=== PATIENT | male | born 1945 ===

== ENCOUNTER 2017-01-31 15:40 | Emergency (ER) | payer MEDICARE ==
[2017-01-31 15:40] VITALS: BMI 308.7
[2017-01-31 16:21] VITALS: RESP 18; TEMP 98
--- NOTE | 2017-01-31 16:27 | ED PDOC ---
Arrival/HPI - General Chief Complaint: High Blood Pressure Time Seen by Provider: 01/31/17 16:04 Historian: Patient, Family - Critical Care Narrative Critical Care (Text): 01/31/17 16:38 71 y/o male with hx DM, CKD, HTN, diabetic neuropathy. Patient took his BP at home multiple times with an automatic BP device. He reports measurements as high as 198 systolic. Patient denies any symptoms including headache, dizziness , vision changes, chest pain and shortness of breath. Patient takes Bystolic 5mg daily for HTN. He took 1 5mg tablet prior to arrival. Patient is currently stable with BP 158/97. - History of Present Illness Time/Duration: Prior to Arrival Symptom Course: Improving Past Medical History - Provider Review Nursing Documentation Reviewed: Yes - Infectious Disease Hx of Infectious Diseases: None - Tetanus Immunization Tetanus Immunization: Unknown - Cardiac Hx Cardiac Disorders: Yes Hx Hypertension: Yes - Pulmonary Hx Respiratory Disorders: No - Neurological Hx Neurological Disorder: No Hx Paralysis: No - HEENT Hx HEENT Disorder: No Hx Blind: No - Renal Hx Renal Disorder: Yes Hx Renal Failure: Yes - Endocrine/Metabolic Hx Endocrine Disorders: Yes Hx Diabetes Mellitus Type 2: Yes Hx Hypothyroidism: Yes - Hematological/Oncological Hx Blood Disorders: No Hx Blood Transfusions: No Hx Blood Transfusion Reaction: No - Integumentary Hx Dermatological Disorder: No - Musculoskeletal/Rheumatological Hx Musculoskeletal Disorders: No - Gastrointestinal Hx Gastrointestinal Disorders: Yes Hx Diverticulitis: Yes (and diverticulosis) Hx Gastroesophageal Reflux: Yes - Genitourinary/Gynecological Hx Genitourinary Disorders: No - Psychiatric Hx Psychophysiologic Disorder: No Hx Emotional Abuse: No Hx Physical Abuse: No Hx Substance Use: No - Surgical History Hx Inguinal Hernia Repair: Yes - Anesthesia Hx Anesthesia: No Hx Anesthesia Reactions: No Hx Malignant Hyperthermia: No - Suicidal Assessment Feels Threatened In Home Enviroment: No Family/Social History - Physician Review Nursing Documentation Reviewed: Yes Family/Social History: Unknown Family HX Smoking Status: Former Smoker Hx Alcohol Use: No Hx Substance Use: No Hx Substance Use Treatment: No Allergies/Home Meds Allergies/Adverse Reactions: Allergies No Known Allergies Allergy (Verified 12/23/16 09:51) Home Medications: Home Meds Medication Instructions Recorded Confirmed Esomeprazole Magnesium [Nexium] 40 mg PO DAILY 11/14/14 12/23/16 Levothyroxine Sodium 88 mcg PO DAILY 11/14/14 12/23/16 Allopurinol [Zyloprim] 50 mg PO DAILY 11/23/16 12/23/16 Cholecalciferol (Vitamin D3) 2,000 unit PO DAILY 11/23/16 12/23/16 [Vitamin D3] Sennosides [Senna] 4 tab PO DAILY 11/23/16 12/23/16 Oxycodone HCl/Acetaminophen 1 tab PO PRN PRN 12/23/16 12/23/16 [Percocet 10-325 mg Tablet] Paracalcitol 1 mcg PO DAILY 12/23/16 12/23/16 Nebivolol [Bystolic] 5 mg PO DAILY 01/31/17 01/31/17 Review of Systems - Physician Review All systems were reviewed & negative as marked: Yes - Review of Systems Constitutional: Normal. absent: Fatigue, Fevers Eyes: Normal ENT: Normal Respiratory: Normal. absent: SOB, Sputum Cardiovascular: Normal. absent: Chest Pain, Palpitations Gastrointestinal: Normal Psychiatric: absent: Anxiety, Depression Physical Exam Vital Signs Reviewed: Yes Vital Signs Temp Pulse Resp BP Pulse Ox 01/31/17 16:14 98.0 F 70 18 156/97 H 99 01/31/17 15:57 97.9 F 62 18 178/108 H 98 Temperature: Afebrile Blood Pressure: Hypertensive Pulse: Regular Respiratory Rate: Normal Appearance: Positive for: Well-Appearing Pain Distress: None Mental Status: Positive for: Alert and Oriented X 3 Finger Stick Blood Glucose: 193 - Systems Exam Head: Present: Atraumatic, Normocephalic Pupils: Present: PERRL Extroacular Muscles: Present: EOMI Conjunctiva: Present: Normal Mouth: Present: Moist Mucous Membranes Neck: Present: Normal Range of Motion Respiratory/Chest: Present: Clear to Auscultation. No: Respiratory Distress Cardiovascular: Present: Regular Rate and Rhythm, Normal S1, S2 Abdomen: Present: Normal Bowel Sounds. No: Tenderness, Distention Upper Extremity: Present: Normal Inspection. No: Cyanosis, Edema Lower Extremity: Present: Normal Inspection, CALF TENDERNESS, NORMAL PULSES. No : Edema Neurological: Present: GCS=15, CN II-XII Intact, Speech Normal Skin: Present: Warm, Dry. No: Rashes Psychiatric: Present: Alert, Oriented x 3, Normal Insight, Normal Concentration Medical Decision Making ED Course and Treatment: 01/31/17 16:35 71 y/o male with hx DM, CKD, diabetic neuropathy presenting from home with reported hypertension. BP is currently 159/97. Patient took Bystolic 5mg prior to arrival. He is asymptomatic. Will continue to monitor. 01/31/17 17:13 Patient remains asymptomatic. BP now 165/100. Patient advised to call his primary, Dr. Garcia and make an appointment as soon as possible. He is instructed to take his BP at home and create a log of his results. Disposition/Present on Arrival - Present on Arrival Any Indicators Present on Arrival: Yes History of DVT/PE: No History of Uncontrolled Diabetes: No Urinary Catheter: No History of Decub. Ulcer: No History Surgical Site Infection Following: None - Disposition Have Diagnosis and Disposition been Completed?: Yes Diagnosis: Hypertension Disposition: HOME/ ROUTINE Disposition Time: 17:17 Patient Plan: Discharge Patient Problems: Current Active Problems Problem Status Diagnosed Hypertension Acute Condition: GOOD Discharge Instructions (ExitCare): Hypertension (ED) Additional Instructions: Take your blood pressure at home and keep a log of your results. If blood pressure continues to be high. Of if you get readings greater than 200/ 100 call your primary physician or come back to the ED. See Dr. Garcia in his office as soon as possible. Referrals: Woodrow Garcia MD [Primary Care Provider] - Follow up with primary
[2017-01-31 17:30] VITALS: BP 172/102; PULSE 58; O2SAT 100
== END 2017-01-31 17:30 | disposition home or self-care (01) ==
LOC: ED 15:40
DX: I12.9 Hypertensive chronic kidney disease with stage 1 through stage 4 chronic kidney disease, or unspecified chronic kidney disease (principal); N18.9 Chronic kidney disease, unspecified; E11.9 Type 2 diabetes mellitus without complications; E03.9 Hypothyroidism, unspecified; Z87.891 Personal history of nicotine dependence

== ENCOUNTER 2017-06-13 09:46 | Inpatient (IN) | payer MEDICARE ==
--- NOTE | 2017-06-13 11:02 | ED PDOC ---
Arrival/HPI - General Chief Complaint: Lower Extremity Problem/Injury Time Seen by Provider: 06/13/17 10:48 Historian: Patient - History of Present Illness Narrative History of Present Illness (Text): 06/13/17 10:48 A 72 year old male, whose past medical history includes diabetes, hypertension, presents to the emergency department complaining of a wound on his left lower extremity for 1 week. Patient reports he was treated at an urgent care and prescribed ointment and Augmentin. Patient has been compliant with medications but has seen no improvement. Patient notes discharge but denies any fever, chills, nausea, vomiting or any other complaints. PMD: Dr. Garcia Time/Duration: 1 week Symptom Course: Worsening Quality: Other Context: Home Past Medical History - Provider Review Nursing Documentation Reviewed: Yes - Infectious Disease Hx of Infectious Diseases: None - Tetanus Immunization Tetanus Immunization: Unknown - Cardiac Hx Cardiac Disorders: Yes Hx Hypertension: Yes - Pulmonary Hx Respiratory Disorders: Yes Hx Chronic Obstructive Pulmonary Disease (COPD): Yes - Neurological Hx Neurological Disorder: Yes Hx Paralysis: No Other/Comment: neuropathy - HEENT Hx HEENT Disorder: No Hx Blind: No - Renal Hx Renal Disorder: Yes Hx Renal Failure: Yes - Endocrine/Metabolic Hx Endocrine Disorders: Yes Hx Diabetes Mellitus Type 2: Yes Hx Hypothyroidism: Yes - Hematological/Oncological Hx Blood Disorders: No Hx Blood Transfusions: No Hx Blood Transfusion Reaction: No - Integumentary Hx Dermatological Disorder: No - Musculoskeletal/Rheumatological Hx Musculoskeletal Disorders: No - Gastrointestinal Hx Gastrointestinal Disorders: Yes Hx Diverticulitis: Yes (and diverticulosis) Hx Gastroesophageal Reflux: Yes - Genitourinary/Gynecological Hx Genitourinary Disorders: No - Psychiatric Hx Psychophysiologic Disorder: No Hx Emotional Abuse: No Hx Physical Abuse: No Hx Substance Use: No - Surgical History Hx Inguinal Hernia Repair: Yes - Anesthesia Hx Anesthesia: Yes Hx Anesthesia Reactions: No Hx Malignant Hyperthermia: No - Suicidal Assessment Feels Threatened In Home Enviroment: No Family/Social History - Physician Review Nursing Documentation Reviewed: Yes Family/Social History: No Known Family HX Smoking Status: Former Smoker Hx Alcohol Use: No Hx Substance Use: No Hx Substance Use Treatment: No Allergies/Home Meds Allergies/Adverse Reactions: Allergies No Known Allergies Allergy (Verified 06/13/17 09:51) Home Medications: Home Meds Medication Instructions Recorded Confirmed ALPRAZolam [Xanax] 0.25 mg PO DAILY 06/13/17 06/13/17 Allopurinol [Zyloprim] 100 mg PO DAILY 06/13/17 06/13/17 Amoxicillin/Clavulanate [Augmentin 1 tab PO DAILY 06/13/17 06/13/17 500 MG-125 MG Tab] Aspirin [Adult Low Dose Aspirin EC] 81 mg PO DAILY 06/13/17 06/13/17 Cholecalciferol [Vitamin D 1000 IU] 1 tab PO DAILY 06/13/17 06/13/17 Doxazosin [Cardura] 2 mg PO DAILY 06/13/17 06/13/17 Esomeprazole Magnesium [Nexium] 40 mg PO DAILY 06/13/17 06/13/17 Levothyroxine [Synthroid] 88 mcg PO DAILY 06/13/17 06/13/17 [id number] Ethyl Esters [OMEGA 3] 1 tab PO DAILY 06/13/17 06/13/17 amLODIPine [Norvasc] 10 g PO DAILY 06/13/17 06/13/17 oxyCODONE [oxyCODONE Immediate 10 mg PO DAILY 06/13/17 06/13/17 Release Tab] Review of Systems - Physician Review All systems were reviewed & negative as marked: Yes - Review of Systems Constitutional: absent: Fevers, Night Sweats Gastrointestinal: absent: Nausea, Vomiting Skin: Other (Left lower extremity wound, pt notes discharge) Physical Exam Vital Signs Reviewed: Yes Vital Signs Temp Pulse Resp BP Pulse Ox 06/13/17 13:53 69 17 152/95 H 96 06/13/17 12:06 58 L 17 143/76 97 06/13/17 10:52 98.0 F 60 18 134/79 98 Temperature: Afebrile Blood Pressure: Normal Pulse: Regular Respiratory Rate: Normal Appearance: Positive for: Well-Appearing, Non-Toxic, Comfortable Pain Distress: None Mental Status: Positive for: Alert and Oriented X 3 - Systems Exam Head: Present: Atraumatic, Normocephalic Pupils: Present: PERRL Extroacular Muscles: Present: EOMI Conjunctiva: Present: Normal Mouth: Present: Moist Mucous Membranes Neck: Present: Normal Range of Motion Respiratory/Chest: Present: Clear to Auscultation, Good Air Exchange. No: Respiratory Distress, Accessory Muscle Use Cardiovascular: Present: Regular Rate and Rhythm, Normal S1, S2. No: Murmurs Abdomen: Present: Normal Bowel Sounds. No: Tenderness, Distention, Peritoneal Signs Back: Present: Normal Inspection Upper Extremity: Present: Normal Inspection. No: Cyanosis, Edema Lower Extremity: Present: NORMAL PULSES, Normal ROM, Neurovascularly Intact, Other (Two 1 cm circular wounds on left lower lateral friend with surrounding erythema, swelling and warmth. Drainage noted in both wounds.). No: Edema, CALF TENDERNESS Neurological: Present: GCS=15, Speech Normal Skin: Present: Warm, Dry, Normal Color. No: Rashes Psychiatric: Present: Alert, Oriented x 3, Normal Insight, Normal Concentration Medical Decision Making ED Course and Treatment: Report Date : 06/13/2017 12:36:23 PROCEDURE: Radiographs of the left tibia and fibula. Dictator : Mango Hylton MD IMPRESSION: No acute findings - Lab Interpretations Lab Results: 06/13/17 11:03 06/13/17 11:03 Lab Results 06/13/17 11:03: Sodium 140, Potassium 4.0, Chloride 104, Carbon Dioxide 26, Anion Gap 14, BUN 46 H, Creatinine 2.8 H, Est GFR ( Amer) 27, Est GFR ( Non-Af Amer) 22, Random Glucose 93, Calcium 9.6, Total Bilirubin 0.7, AST 30, ALT 26, Alkaline Phosphatase 69, Total Protein 7.1, Albumin 4.0, Globulin 3.1, Albumin/Globulin Ratio 1.3 06/13/17 11:03: WBC 7.1, RBC 3.30 L, Hgb 10.7 L, Hct 30.7 L, MCV 93.0, MCH 32.4 , MCHC 34.9, RDW 13.2, Plt Count 193, MPV 10.2, Gran % 67.3, Lymph % (Auto) 19.6 L, [place] % (Auto) 10.5 H, Eos % (Auto) 2.2, Baso % (Auto) 0.4, Gran # 4.80, Lymph # 1.4, [place] # 0.8 H, Eos # 0.2, Baso # 0.03 I have reviewed the lab results: Yes - RAD Interpretation Radiology Orders: 06/13/17 11:04 TIBIA FIBULA LEFT [RAD] Stat - Medication Orders Current Medication Orders: Allopurinol (Zyloprim) 100 mg PO DAILY KANE Alprazolam (Xanax) 0.25 mg PO DAILY KANE PRN Reason: Protocol Stop: 06/21/17 10:01 Amlodipine Besylate (Norvasc) 10 mg PO DAILY [facility] Aspirin (Ecotrin) 81 mg PO DAILY [facility] Cholecalciferol (Vitamin D) 1,000 iu PO DAILY [facility]ANE Doxazosin Mesylate (Cardura) 2 mg PO DAILY [facility] Heparin Sodium (Porcine) (Heparin) 5,000 units SC Q12 KANE PRN Reason: Protocol Ceftaroline Fosamil 300 mg/ (Sodium Chloride) 50 mls @ 50 mls/hr IVPB Q12H KANE PRN Reason: Protocol Stop: 06/14/17 10:59 Levothyroxine Sodium (Synthroid) 88 mcg PO 0600 KANE Qtmyo-3-Exzt Ethyl Esters (Lovaza) 1 gm PO DAILY [facility]NE Pantoprazole Sodium (Protonix Inj) 40 mg IVP DAILY KANE Discontinued Medications Doxazosin Mesylate (Cardura) 2 mg PO DAILY KANE Ceftaroline Fosamil 600 mg/ (Sodium Chloride) 100 mls @ 100 mls/hr IVPB Q12 KANE PRN Reason: Protocol Stop: 06/13/17 22:59 Last Admin: 06/13/17 13:20 Dose: 100 mls/hr - Scribe Statement The provider has reviewed the documentation as recorded by the Hawa Mendez Provider Scribe Attestation: All medical record entries made by the Scribe were at my direction and personally dictated by me. I have reviewed the chart and agree that the record accurately reflects my personal performance of the history, physical exam, medical decision making, and the department course for this patient. I have also personally directed, reviewed, and agree with the discharge instructions and disposition. Disposition/Present on Arrival - Present on Arrival Any Indicators Present on Arrival: No History of DVT/PE: No History of Uncontrolled Diabetes: No Urinary Catheter: No History of Decub. Ulcer: No History Surgical Site Infection Following: None - Disposition Have Diagnosis and Disposition been Completed?: Yes Diagnosis: Cellulitis of leg, Wound infection Disposition: HOSPITALIZED Disposition Time: 13:23 Condition: STABLE
[2017-06-13 11:10] LABS: BASO # 0.03 K/mm3 (0.0-2.0); BASO % 0.4 % (0.0-3.0); EOS # 0.2 (0.0-0.7); EOS % 2.2 % (1.5-5.0); GRAN % 67.3 % (50.0-68.0); HEMOGLOBIN 10.7 g/dL (14.0-18.0); LYMPH # 1.4 (1.2-3.4); LYMPH % 19.6 % (22.0-35.0); MEAN CORPUSCULAR HEMOGLOBIN 32.4 pg (25.0-35.0); MEAN CORPUSCULAR HGB CONC 34.9 g/dl (31.0-37.0); MEAN PLATELET VOLUME 10.2 fl (7.0-11.0); MONO # 0.8 (0.1-0.6); MONO % 10.5 % (1.0-6.0); PLATELET COUNT 193 10^3/uL (120.0-450.0); RED CELL DISTRIBUTION WIDTH 13.2 % (11.5-14.5); WHITE BLOOD COUNT 7.1 10^3/ul (4.5-11.0)
[2017-06-13 11:22] LABS: ALB/GLOB RATIO 1.3 (1.1-1.8); CALCIUM 9.6 mg/dL (8.4-10.5)
--- NOTE | 2017-06-13 12:38 | RAD ---
PROCEDURE: Radiographs of the left tibia and fibula. HISTORY: wound eval for osteo/gas COMPARISON: None available. TECHNIQUE: Frontal and lateral views obtained. FINDINGS: BONES: No fracture or destructive lesion. JOINT SPACES: Unremarkable. OTHER FINDINGS: There is a large soft tissue calcification posterior to the tibia measuring 11 cm in length and 0.8 cm in thickness. This is most likely due to previous injury or infection. IMPRESSION: No acute findings
--- NOTE | 2017-06-13 17:40 | CP.PCM.HP ---
<Eddie Barros - Last Filed: 06/13/17 17:29> History of Present Illness - History of Present Illness History of Present Illness: Patient is a 72 year old male with past medical history of diabetes, hypertenion , CKD, neuropathy, anxiety, diverticulosis and gout who presents to the ED complaining of left lower extremity redness, swelling and pain. The patient reported that he first noticed his leg becoming red one week prior to admission. He indicates he went walking in a park and possible had bug bites or breaking of the skin after walking through brush. The patient reports after noticing his leg beginning to turn red and swell he went to an urgent care for evaluation. While there he was given ciprofloxacin 250mg for possible cellulitis. The patient reports taking 5 days of the medication. The patient continued to feel pain and worsening redness and swelling so he went back to the urgent care and was given another prescription for antibiotics. The patient reports taking Amoxicillin for the past 2 days. After his antibiotic course he contacted his primary care physicain Dr. Petty and was instructed to go to the emergency department for evaluation. Lower leg xray in the ED showing large soft tissue calcification posterior to the tibia measuring 11cm in length and 0.8cm in thickness most likely due to previous injury or infection. The patient was noted to not have an elevation in his WBC or temperature. Patient was started on Ceftaroline in ED for cellulitis. Patient denies chest pain, shob, abdominal pain, change in his bowel, n/v/f/c. PMH: as above PSH: Umbilical hernia repair, Liposuction FMH: Non-contributory SocHx: Tob:- ETOH:- Drug:-, Lives with All: NKDA Meds: See MAR PMD: Dr. Petty Present on Admission - Present on Admission Any Indicators Present on Admission: No History of DVT/PE: No History of Uncontrolled Diabetes: No Urinary Catheter: No Decubitus Ulcer Present: No Review of Systems - Constitutional Constitutional: As Per HPI - EENT Eyes: As Per HPI Nose/Mouth/Throat: As Per HPI - Cardiovascular Cardiovascular: As Per HPI - Respiratory Respiratory: As Per HPI - Gastrointestinal Gastrointestinal: As Per HPI - Genitourinary Genitourinary: As Per HPI - Reproductive: Male Reproductive:Male: As Per HPI - Musculoskeletal Musculoskeletal: As Per HPI - Integumentary Integumentary: As Per HPI - Neurological Neurological: As Per HPI - Psychiatric Psychiatric: As Per HPI - Endocrine Endocrine: As Per HPI Past Patient History - Infectious Disease Hx of Infectious Diseases: None - Tetanus Immunizations Tetanus Immunization: Unknown - Past Social History Smoking Status: Former Smoker Alcohol: None Drugs: Denies - CARDIAC Hx Cardiac Disorders: Yes Hx Hypertension: Yes - PULMONARY Hx Respiratory Disorders: Yes Hx Chronic Obstructive Pulmonary Disease (COPD): Yes - NEUROLOGICAL Hx Neurological Disorder: Yes Hx Paralysis: No Other/Comment: neuropathy - HEENT Hx HEENT Problems: No Hx Blind: No - RENAL Hx Chronic Kidney Disease: Yes Hx Renal Failure: Yes - ENDOCRINE/METABOLIC Hx Endocrine Disorders: Yes Hx Diabetes Mellitus Type 2: Yes Hx Hypothyroidism: Yes - HEMATOLOGICAL/ONCOLOGICAL Hx Blood Disorders: No Hx Blood Transfusions: No Hx Blood Transfusion Reaction: No - INTEGUMENTARY Hx Dermatological Problems: No - MUSCULOSKELETAL/RHEUMATOLOGICAL Hx Musculoskeletal Disorders: No - GASTROINTESTINAL Hx Gastrointestinal Disorders: Yes Hx Diverticulitis: Yes (and diverticulosis) Hx Gastroesophageal Reflux: Yes - GENITOURINARY/GYNECOLOGICAL Hx Genitourinary Disorders: No - PSYCHIATRIC Hx Psychophysiologic Disorder: No Hx Emotional Abuse: No Hx Physical Abuse: No Hx Substance Use: No - SURGICAL HISTORY Hx Surgeries: Yes (LASER SX TO PROSTATE, LIPOSUCTION,UMBILICAL HERNIA REPAIR,) - ANESTHESIA Hx Anesthesia: Yes Hx Anesthesia Reactions: No Hx Malignant Hyperthermia: No Meds Allergies/Adverse Reactions: Allergies Allergy/AdvReac Type Severity Reaction Status Date / Time No Known Allergies Allergy Verified 06/13/17 09:51 Physical Exam - Head Exam Head Exam: ATRAUMATIC, NORMAL INSPECTION, NORMOCEPHALIC - Eye Exam Eye Exam: EOMI, PERRL - ENT Exam ENT Exam: Mucous Membranes Moist, Normal Exam - Neck Exam Neck exam: Positive for: Normal Inspection - Respiratory Exam Respiratory Exam: Clear to Auscultation Bilateral, NORMAL BREATHING PATTERN - Cardiovascular Exam Cardiovascular Exam: REGULAR RHYTHM, +S1, +S2 - GI/Abdominal Exam GI & Abdominal Exam: Normal Bowel Sounds, Soft - Rectal Exam Rectal Exam: Deferred - Extremities Exam Extremities exam: Positive for: full ROM, pedal pulses present Additional comments: lower left extremity mid tibia to malleoli of ankle there is echymosis, warmth, and two open sores with yellow purulent drainage - Back Exam Back exam: NORMAL INSPECTION - Neurological Exam Neurological exam: Alert, CN II-XII Intact, Normal Gait, Oriented x3, Reflexes Normal - Psychiatric Exam Psychiatric exam: Normal Affect, Normal Mood - Skin Skin Exam: Dry, Warm Results - Vital Signs Recent Vital Signs: Last Vital Signs Temp 98.0 F 06/13/17 10:52 Pulse 69 06/13/17 13:53 Resp 17 06/13/17 13:53 BP 152/95 H 06/13/17 13:53 Pulse Ox 96 06/13/17 13:53 - Labs Result Diagrams: 06/13/17 11:03 06/13/17 11:03 Labs: Laboratory Results - last 24 hr 06/13/17 06/13/17 06/13/17 14:01 14:01 16:28 POC Glucose (mg/dL) 128 H Hemoglobin A1c 6.0 Procalcitonin < 0.05 L Assessment & Plan - Assessment and Plan (Free Text) Assessment: This is a 72 year old male with PMH of HTN, DM, CKD, Neuropathy, Anxiety, hematuria, Diverticulosis and gout who came to ED for worsening left lower extremity suspected cellulitis Plan: 1. Left lower extremity Cellulitis - Afebrile, leukocytosis absent - Xray with no acute findings but signs of previous injury - Wound culture, Blood culture - Consult ID - Consult Podiatry - Ceftaroline renally dosed at 300mg IVPB BID 2. Chronic kidney injury - Cr 2.8, records indicate baseline closer to 3 - Urinalysis - Continue to monitor - Renally dose medications 3. HTN, CAD - Continue norvasc, cardura, ASA 4. Hx of DM - Currently not on medication for DM - HgA1C 6.0 - CCD 5. Hx of hypothyroid - Continue synthroid 6. Hx of Constipation - colace and miralax prn 7. Hx of Anxiety - Xanax 0.25mg prn 8. Hx of Gout - Allopurinol DVT ppx: Heparin 5000 units GI ppx: Protonix - Date & Time Date: 06/13/17 Time: 17:43 <Dorian Link - Last Filed: 06/17/17 15:41> Results - Vital Signs Recent Vital Signs: Last Vital Signs Temp 98.1 F 06/15/17 07:56 Pulse 60 06/15/17 07:56 Resp 18 06/15/17 07:56 BP 133/84 06/15/17 09:33 Pulse Ox 95 06/15/17 07:56 - Labs Result Diagrams: 06/15/17 07:05 06/15/17 07:05 Attending/Attestation - Attestation I have personally seen and examined this patient.: Yes I have fully participated in the care of the patient.: Yes I have reviewed all pertinent clinical information: Yes Notes (Text): I have seen and examined patient at bedside. Briefly this is 72 year old male with history of HTN, CKD, Neuropathy, Anxiety, hematuria, Diverticulosis and gout who came to ED for worsening left lower extremity cellulitis. Agree with the above plan. Will consult ID and podiatry. Will start teflaro. Dr Dorian Link
[2017-06-13 18:51] VITALS: BMI 30.6
[2017-06-13] MEDS ORDERED: Pneumococcal 23-Valent Vaccine IM ONE (18:51)
[2017-06-13] MEDS ORDERED: Ceftaroline 600 MG in Sodium Chloride 0.9% 100 ML IVPB SCH (22:00)
[2017-06-14] MEDS: Levothyroxine 88 MCG TAB PO SCH (07:37)
[2017-06-14 07:47] LABS: BASO # 0.03 K/mm3 (0.0-2.0); BASO % 0.5 % (0.0-3.0); EOS # 0.2 (0.0-0.7); EOS % 2.8 % (1.5-5.0); GRAN # 3.93 (1.4-6.5); GRAN % 65.5 % (50.0-68.0); HEMOGLOBIN 10.4 g/dL (14.0-18.0); LYMPH # 1.4 (1.2-3.4); LYMPH % 22.5 % (22.0-35.0); MEAN CELL VOLUME 92.3 fl (80.0-105.0); MEAN CORPUSCULAR HEMOGLOBIN 31.9 pg (25.0-35.0); MEAN CORPUSCULAR HGB CONC 34.6 g/dl (31.0-37.0); MEAN PLATELET VOLUME 10.1 fl (7.0-11.0); MONO # 0.5 (0.1-0.6); MONO % 8.7 % (1.0-6.0); PLATELET COUNT 198 10^3/uL (120.0-450.0); RBC 3.26 10^6/uL (3.5-6.1); RED CELL DISTRIBUTION WIDTH 13.1 % (11.5-14.5)
[2017-06-14 08:00] VITALS: RESP 18
[2017-06-14 08:07] LABS: ALB/GLOB RATIO 1.2 (1.1-1.8); ALBUMIN 3.5 g/dL (3.0-4.8); CALCIUM 9.7 mg/dL (8.4-10.5)
[2017-06-14] MEDS: Omega-3-Acid Ethyl Esters 1 GM Cap PO SCH (09:20)
--- NOTE | 2017-06-14 15:09 | CON ---
SUBJECTIVE: A 72-year-old diabetic male seen at bedside for consultation and evaluation and management of recent ulcerations on his left lower leg. The patient states that during the course over the last 2 weeks he noticed "bumps" on the side of his leg where he went immediately to an urgent care center that prescribed oral and topical antibiotics. In the ensuing one week after that the wound started to progressively get worse until approximately 2 days ago he noticed his left lower leg becoming very swollen and painful with puss coming out of the area of concern. He went to the emergency room and was admitted for IV antibiotics. PAST MEDICAL HISTORY: Significant for longstanding diet controlled diabetes with peripheral neuropathy, anxiety, diverticulosis, gout, essential hypertension, CKD and osteoarthritis. PAST SURGICAL HISTORY: Includes liposuction and hernia repair. FAMILY HISTORY: Unremarkable. ALLERGIES: THE PATIENT HAS NO KNOWN DRUGS ALLERGIES. HOME MEDICATIONS: Noted in MAR. SOCIAL HISTORY: The patient denies illicit drug use. Denies tobacco, denies alcohol. Lives with his and is retired. PHYSICAL EXAMINATION: Vital signs reveal temperature of 98.3, pulse rate of 53, blood pressure of 128/82, and respiratory rate of 18. LABORATORY FINDINGS: Reveal white count of 6.0, hemoglobin of 10.4, hematocrit of 30.1. Platelet count of 198. Microbiology report reveals no polymorphonuclear white blood cells and no organism seen. We will do repeat culture today as wound has opened and there is slight purulence. OBJECTIVE: Nonpalpable pedal pulses noted bilaterally. Weakly palpable pedal pulses noted bilaterally. The patient is unable to detect 5.07 g monofilament wire testing bilaterally. Lower extremities present with +2 nonpitting lower extremity edema. Lower extremities skin on both lower leg present with thin shiny discoloration. All nail plates are noted to be discolored, thickened, dystrophic with subungual fungal debris. There are noted to be 2 ulcerations on the lateral aspect of the left lower leg each measure approximately 0.5 x 0.5 x 0.5 x 0.2 cm. The mid base of the ulcers are mixture of primarily granular and fibrotic tissue. There is noted to be minimal purulence aminating from the wound. On manual compression, there was no purulence expressed indicate underlying abscess formation. X-rays taken reveal no radiographic evidence of osteomyelitis underlying the ulcerative sites. Ulcerated area is edematous and erythematous locally. No signs of ascending cellulitis. ASSESSMENT: Diabetic ulceration of left lower leg with localized cellulitis. PLAN: The patient's wound was examined. New culture was taken and submitted for sensitivities. Wound was cleansed with normal sterile saline. We will apply Bactroban and dried sterile compressive dressing daily. Arterial and venous Dopplers will be ordered. Infectious disease consult recommended immediately and asked to evaluate culture and sensitive results. The patient will be seen and followed daily. Samy Kessler DPM
[2017-06-14 15:42] VITALS: PULSE 60; O2SAT 95
--- NOTE | 2017-06-14 15:48 | CP.PCM.PN ---
<Janeth Mane - Last Filed: 06/14/17 19:39> Subjective - Date & Time of Evaluation Date of Evaluation: 06/14/17 Time of Evaluation: 10:00 - Subjective Subjective: Progress Note for PT S&E at bedside. CHARLIE. Patient has no complaints today. Patient states he is tolerating pain well. Patient denies Fever, chils, nausea, vomitting, abdominal pain. Patient states he does not take medication for his diabetes. Patient has no other complaints. Patient was told Dr. Valdez would see him today. Objective - Vital Signs/Intake and Output Vital Signs (last 24 hours): Temp Pulse Resp BP Pulse Ox 97 F L 60 18 141/91 H 95 06/14/17 15:41 06/14/17 15:41 06/14/17 15:41 06/14/17 15:41 06/14/17 15:41 Intake and Output: 06/14/17 06/14/17 06:59 18:59 Intake Total 1120 680 Balance 1120 680 - Medications Medications: Current Medications Allopurinol (Zyloprim) 100 mg PO DAILY [facility] Last Admin: 06/14/17 09:19 Dose: 100 mg Alprazolam (Xanax) 0.25 mg PO DAILY [facility] PRN Reason: Protocol Stop: 06/21/17 10:01 Last Admin: 06/14/17 09:19 Dose: 0.25 mg Amlodipine Besylate (Norvasc) 10 mg PO DAILY [facility] Last Admin: 06/14/17 09:20 Dose: 10 mg Aspirin (Ecotrin) 81 mg PO DAILY [facility] Last Admin: 06/14/17 09:19 Dose: 81 mg Cholecalciferol (Vitamin D) 1,000 iu PO DAILY [facility] Last Admin: 06/14/17 09:19 Dose: 1,000 iu Doxazosin Mesylate (Cardura) 2 mg PO DAILY [facility] Last Admin: 06/14/17 09:19 Dose: 2 mg Heparin Sodium (Porcine) (Heparin) 5,000 units SC Q12 [facility] PRN Reason: Protocol Last Admin: 06/14/17 09:21 Dose: 5,000 units Ceftaroline Fosamil 300 mg/ (Sodium Chloride) 50 mls @ 50 mls/hr IVPB Q12H [facility] PRN Reason: Protocol Stop: 06/20/17 22:01 Last Admin: 06/14/17 09:58 Dose: 50 mls/hr Levothyroxine Sodium (Synthroid) 88 mcg PO 0600 [facility] Last Admin: 06/14/17 07:37 Dose: 88 mcg [id number]-[id number] Ethyl Esters (Lovaza) 1 gm PO DAILY [facility] Last Admin: 06/14/17 09:20 Dose: 1 gm Pantoprazole Sodium (Protonix Inj) 40 mg IVP DAILY [facility] Last Admin: 06/14/17 09:18 Dose: 40 mg - Labs Labs: 06/14/17 07:00 06/14/17 07:00 - Constitutional Appears: Non-toxic - Head Exam Head Exam: NORMAL INSPECTION - Eye Exam Eye Exam: EOMI, Normal appearance - ENT Exam ENT Exam: Mucous Membranes Moist - Neck Exam Neck Exam: Full ROM. absent: Tenderness - Respiratory Exam Respiratory Exam: Decreased Breath Sounds, Clear to Ausculation Bilateral, NORMAL BREATHING PATTERN. absent: Accessory Muscle Use, Respiratory Distress - Cardiovascular Exam Cardiovascular Exam: REGULAR RHYTHM. absent: Bradycardia, Tachycardia - GI/Abdominal Exam GI & Abdominal Exam: Soft, Normal Bowel Sounds Assessment and Plan - Assessment and Plan (Free Text) Assessment: This is a 72 year old male with PMH of HTN, DM, CKD, Neuropathy, Anxiety, hematuria, Diverticulosis and gout who came to ED for worsening left lower extremity suspected cellulitis Plan: 1. Left lower extremity Cellulitis - Afebrile, leukocytosis absent - Xray with no acute findings but signs of previous injury - Wound culture, Blood culture - ID Boghossian - Consult Podiatry - Dr. Mcgarry - Ceftaroline renally dosed at 300mg IVPB BID f/u Duplex Lower extremities arterial: nosonographic evidence for DVT. 3.8 x 6.8 cm fluid collection left popliteal fossa. 4.4x6.1cm fluid collection in right popliteal fossa. representing hemorrhagic Fortune's cyst. venous: PVR waveforms, normal and symmetric at all levels.calcified and noncompressible vessels.resting SRINIVASA not obtainable Tibia/fibula XRAY Large tissue calcification posterior to the tibia measuring 11cm in length and 0.8cm thickness Dr. Valdez - Jennyfer started pending blood cx results - f/u 2. Chronic kidney injury - Cr 2.8, records indicate baseline closer to 3 - Urinalysis - Continue to monitor - Renally dose medications 3. HTN, CAD - Continue norvasc, cardura, ASA 4. Hx of DM - Currently not on medication for DM - HgA1C 6.0 - CCD 5. Hx of hypothyroid - Continue synthroid 6. Hx of Constipation - colace and miralax prn 7. Hx of Anxiety - Xanax 0.25mg prn 8. Hx of Gout - Allopurinol DVT ppx: Heparin 5000 units SC Q12 GI ppx: Protonix <Vee Oconnor - Last Filed: 06/14/17 20:04> Objective - Vital Signs/Intake and Output Vital Signs (last 24 hours): Temp Pulse Resp BP Pulse Ox 97 F L 60 18 141/91 H 95 06/14/17 15:41 06/14/17 15:41 06/14/17 15:41 06/14/17 15:41 06/14/17 15:41 Intake and Output: 06/14/17 06/15/17 18:59 06:59 Intake Total 680 Balance 680 - Medications Medications: Current Medications Allopurinol (Zyloprim) 100 mg PO DAILY [facility] Last Admin: 06/14/17 09:19 Dose: 100 mg Alprazolam (Xanax) 0.25 mg PO DAILY [facility] PRN Reason: Protocol Stop: 06/21/17 10:01 Last Admin: 06/14/17 09:19 Dose: 0.25 mg Amlodipine Besylate (Norvasc) 10 mg PO DAILY [facility] Last Admin: 06/14/17 09:20 Dose: 10 mg Aspirin (Ecotrin) 81 mg PO DAILY [facility] Last Admin: 06/14/17 09:19 Dose: 81 mg Cholecalciferol (Vitamin D) 1,000 iu PO DAILY [facility] Last Admin: 06/14/17 09:19 Dose: 1,000 iu Doxazosin Mesylate (Cardura) 2 mg PO DAILY [facility] Last Admin: 06/14/17 09:19 Dose: 2 mg Heparin Sodium (Porcine) (Heparin) 5,000 units SC Q12 [facility] PRN Reason: Protocol Last Admin: 06/14/17 09:21 Dose: 5,000 units Ceftaroline Fosamil 300 mg/ (Sodium Chloride) 50 mls @ 50 mls/hr IVPB Q12H [facility] PRN Reason: Protocol Stop: 06/20/17 22:01 Last Admin: 06/14/17 09:58 Dose: 50 mls/hr Levothyroxine Sodium (Synthroid) 88 mcg PO 0600 [facility] Last Admin: 06/14/17 07:37 Dose: 88 mcg [id number] Ethyl Esters (Lovaza) 1 gm PO DAILY [facility] Last Admin: 06/14/17 09:20 Dose: 1 gm - Labs Labs: 06/14/17 07:00 06/14/17 07:00 Attending/Attestation - Attestation I have personally seen and examined this patient.: Yes I have fully participated in the care of the patient.: Yes I have reviewed all pertinent clinical information, including history, physical exam and plan: Yes Notes (Text): 06/14/17 20:00 patient seen and examined at bedside. Vitals, labs, orders and notes reviewed. Patient denies any new complaints and is sitting comfortably in bed in no distress. Case discussed with ID and podiatry, follow cultures and continue antibiotics considering failure of outpatient therapy. Agree with the plan as outlined by the resident,
--- NOTE | 2017-06-14 17:29 | US ---
HISTORY: Leg pain and swelling. Evaluate for DVT PHYSICIAN(S): Derrek Dao MD. TECHNIQUE: Duplex sonography and color-flow Doppler with graded compression were used to evaluate the deep venous systems of both lower extremities. FINDINGS: The visualized deep venous systems of both lower extremities are sonographically normal and compressible. Normal wave forms and augmentation are seen. There is no sonographic evidence for deep venous thrombosis in the visualized segments of both lower extremities. There is a complex 4.4 x 6.1 cm fluid collection in the right popliteal fossa which could represent hemorrhagic Fortune's cyst. There is a simple 3.8 x 6.8 cm fluid collection left popliteal fossa consistent with a Fortune's cyst. IMPRESSION: No sonographic evidence for deep venous thrombosis in the visualized segments of both lower extremities.
--- NOTE | 2017-06-14 17:34 | US ---
PROCEDURE: Lower extremity SRINIVASA exam HISTORY: Peripheral vascular disease with pain and ulceration . Previous smoker. Diabetes. PHYSICIAN(S): Derrek Dao MD. FINDINGS: The exam is limited by calcified, noncompressible vessels at all levels. The resting ABIs are not obtainable. The PVR waveforms, however, are normal and symmetric at all levels. IMPRESSION: 1. The PVR waveforms are normal and symmetric at all levels. 2. The exam is limited by calcified, noncompressible vessels. The resting ABIs are not obtainable.
--- NOTE | 2017-06-14 18:15 | CP.PCM.CON ---
History of Present Illness - History of Present Illness History of Present Illness: 72 year old male with PMH of DM, HTN, chronic renal failure, peripheral neuropathy, anxiety disorder, history of dvierticulosis, gout, obesity with BMI 31 came in to [facility] complaining of left lower extremity pain and swelling and redness. He apparently went walking in a park and his legs brushed on bushes and he may have had insect bites. He first went to an urgent care center where he was given Ciprofloxacin which did not help with hsi symptoms. He then went back to the urgent care center where he was prescribed Amoxicillin which again did not help. He went to his PMD who told him to get admitted. He denies fever or chills, no nausea or vomiting, no chest pain, no nausea or vomiting, no cough or colds, no headache or dizziness, no abdominal pain, no diarrhea, no dysuria. Infectious Diseases consult is requested to further evaluate and manage. Review of Systems - Review of Systems All systems: reviewed and no additional remarkable complaints except (as per HPI ) Past Patient History - Infectious Disease Hx of Infectious Diseases: None - Tetanus Immunizations Tetanus Immunization: Unknown - Past Social History Smoking Status: Former Smoker - CARDIAC Hx Cardiac Disorders: Yes Hx Hypertension: Yes - PULMONARY Hx Respiratory Disorders: Yes Hx Chronic Obstructive Pulmonary Disease (COPD): Yes - NEUROLOGICAL Hx Neurological Disorder: Yes Hx Paralysis: No Other/Comment: neuropathy - HEENT Hx HEENT Problems: No Hx Blind: No - RENAL Hx Chronic Kidney Disease: Yes Hx Renal Failure: Yes - ENDOCRINE/METABOLIC Hx Endocrine Disorders: Yes Hx Diabetes Mellitus Type 2: Yes Hx Hypothyroidism: Yes - HEMATOLOGICAL/ONCOLOGICAL Hx Blood Disorders: No Hx Blood Transfusions: No Hx Blood Transfusion Reaction: No - INTEGUMENTARY Hx Dermatological Problems: No - MUSCULOSKELETAL/RHEUMATOLOGICAL Hx Musculoskeletal Disorders: No - GASTROINTESTINAL Hx Gastrointestinal Disorders: Yes Hx Diverticulitis: Yes (and diverticulosis) Hx Gastroesophageal Reflux: Yes - GENITOURINARY/GYNECOLOGICAL Hx Genitourinary Disorders: No - PSYCHIATRIC Hx Psychophysiologic Disorder: No Hx Emotional Abuse: No Hx Physical Abuse: No Hx Substance Use: No - SURGICAL HISTORY Hx Surgeries: Yes (LASER SX TO PROSTATE, LIPOSUCTION,UMBILICAL HERNIA REPAIR,) - ANESTHESIA Hx Anesthesia: Yes Hx Anesthesia Reactions: No Hx Malignant Hyperthermia: No Meds Allergies/Adverse Reactions: Allergies Allergy/AdvReac Type Severity Reaction Status Date / Time No Known Allergies Allergy Verified 06/13/17 09:51 - Medications Medications: Current Medications Allopurinol (Zyloprim) 100 mg PO DAILY [facility] Alprazolam (Xanax) 0.25 mg PO DAILY [facility] PRN Reason: Protocol Stop: 06/21/17 10:01 Amlodipine Besylate (Norvasc) 10 mg PO DAILY [facility] Aspirin (Ecotrin) 81 mg PO DAILY [facility] Cholecalciferol (Vitamin D) 1,000 iu PO DAILY [facility] Doxazosin Mesylate (Cardura) 2 mg PO STAT [facility] Stop: 06/13/17 17:27 Heparin Sodium (Porcine) (Heparin) 5,000 units SC Q12 [facility] PRN Reason: Protocol Ceftaroline Fosamil 300 mg/ (Sodium Chloride) 50 mls @ 50 mls/hr IVPB Q12H [facility] PRN Reason: Protocol Stop: 06/20/17 22:01 Levothyroxine Sodium (Synthroid) 88 mcg PO 0600 [facility] [id number] Ethyl Esters (Lovaza) 1 gm PO DAILY [facility] Pantoprazole Sodium (Protonix Inj) 40 mg IVP DAILY [facility] Physical Exam - Constitutional Appears: Non-toxic, No Acute Distress - Head Exam Head Exam: NORMAL INSPECTION - ENT Exam ENT Exam: Mucous Membranes Moist - Neck Exam Neck exam: Negative for: Lymphadenopathy, Meningismus - Respiratory Exam Respiratory Exam: Decreased Breath Sounds - Cardiovascular Exam Cardiovascular Exam: +S1, +S2 - GI/Abdominal Exam GI & Abdominal Exam: Soft. absent: Tenderness - Extremities Exam Additional comments: left leg with sohail bandage in place Results - Vital Signs Recent Vital Signs: Last Vital Signs Temp 98.0 F 06/13/17 10:52 Pulse 69 06/13/17 13:53 Resp 17 06/13/17 13:53 BP 150/98 H 06/13/17 17:20 Pulse Ox 96 06/13/17 13:53 - Labs Result Diagrams: 06/14/17 07:00 06/14/17 07:00 Labs: Laboratory Results - last 24 hr 06/13/17 06/13/17 06/13/17 14:01 14:01 16:28 POC Glucose (mg/dL) 128 H Hemoglobin A1c 6.0 Procalcitonin < 0.05 L Assessment & Plan - Assessment and Plan (Free Text) Plan: Assessment Probable left lower extremity cellulitis DM HTN chronic renal failure peripheral neuropathy anxiety disorder history of dvierticulosis gout obesity with BMI 31 Plan Started patient on Teflaro pending blood cx; follow up Podiatry evaluation and recommendations will monitor clinical response
[2017-06-15] MEDS: Levothyroxine 88 MCG TAB PO SCH (05:01)
[2017-06-15 07:57] VITALS: BP 133/84; TEMP 98.1
[2017-06-15 08:24] LABS: BASO # 0.03 K/mm3 (0.0-2.0); BASO % 0.5 % (0.0-3.0); EOS # 0.2 (0.0-0.7); EOS % 3.2 % (1.5-5.0); GRAN # 3.76 (1.4-6.5); GRAN % 63.5 % (50.0-68.0); HEMOGLOBIN 10.4 g/dL (14.0-18.0); LYMPH # 1.5 (1.2-3.4); LYMPH % 25.5 % (22.0-35.0); MEAN CELL VOLUME 91.2 fl (80.0-105.0); MEAN CORPUSCULAR HEMOGLOBIN 31.6 pg (25.0-35.0); MEAN CORPUSCULAR HGB CONC 34.7 g/dl (31.0-37.0); MEAN PLATELET VOLUME 10.1 fl (7.0-11.0); MONO # 0.4 (0.1-0.6); MONO % 7.3 % (1.0-6.0); PLATELET COUNT 218 10^3/uL (120.0-450.0); RBC 3.29 10^6/uL (3.5-6.1); RED CELL DISTRIBUTION WIDTH 12.9 % (11.5-14.5); WHITE BLOOD COUNT 5.9 10^3/ul (4.5-11.0)
[2017-06-15 08:43] LABS: ALB/GLOB RATIO 1.1 (1.1-1.8); ALBUMIN 3.4 g/dL (3.0-4.8); CALCIUM 9.5 mg/dL (8.4-10.5)
[2017-06-15] MEDS ORDERED: Sodium Chloride 0.9% 1,000 ML IV SCH (09:00)
[2017-06-15] MEDS: Omega-3-Acid Ethyl Esters 1 GM Cap PO SCH (09:31)
--- NOTE | 2017-06-15 13:39 | CP.PCM.PN ---
Subjective - Date & Time of Evaluation Date of Evaluation: 06/15/17 Time of Evaluation: 11:45 - Subjective Subjective: Feeling better, less pain in the legs, no fevers. Objective - Vital Signs/Intake and Output Vital Signs (last 24 hours): Temp Pulse Resp BP Pulse Ox 98.1 F 60 18 133/84 95 06/15/17 07:56 06/15/17 07:56 06/15/17 07:56 06/15/17 09:33 06/15/17 07:56 Intake and Output: 06/15/17 06/15/17 06:59 18:59 Intake Total 960 Balance 960 - Medications Medications: Current Medications Allopurinol (Zyloprim) 100 mg PO DAILY [facility] Last Admin: 06/15/17 09:31 Dose: 100 mg Alprazolam (Xanax) 0.25 mg PO DAILY [facility] PRN Reason: Protocol Stop: 06/21/17 10:01 Last Admin: 06/15/17 09:31 Dose: 0.25 mg Amlodipine Besylate (Norvasc) 10 mg PO DAILY [facility] Last Admin: 06/15/17 09:33 Dose: 10 mg Aspirin (Ecotrin) 81 mg PO DAILY [facility] Last Admin: 06/15/17 09:32 Dose: 81 mg Cholecalciferol (Vitamin D) 1,000 iu PO DAILY [facility] Last Admin: 06/15/17 09:31 Dose: 1,000 iu Doxazosin Mesylate (Cardura) 2 mg PO DAILY [facility] Last Admin: 06/15/17 09:32 Dose: 2 mg Heparin Sodium (Porcine) (Heparin) 5,000 units SC Q12 [facility] PRN Reason: Protocol Last Admin: 06/15/17 09:32 Dose: 5,000 units Ceftaroline Fosamil 300 mg/ (Sodium Chloride) 50 mls @ 50 mls/hr IVPB Q12H [facility] PRN Reason: Protocol Stop: 06/20/17 22:01 Last Admin: 06/14/17 21:08 Dose: 50 mls/hr Sodium Chloride (Sodium Chloride 0.9%) 1,000 mls @ 100 mls/hr IV .Q10H [facility] Last Admin: 06/15/17 09:40 Dose: 100 mls/hr Levothyroxine Sodium (Synthroid) 88 mcg PO 0600 [facility] Last Admin: 06/15/17 05:01 Dose: 88 mcg [id number]-7-Gudn Ethyl Esters (Lovaza) 1 gm PO DAILY [facility] Last Admin: 06/15/17 09:31 Dose: 1 gm - Labs Labs: 06/15/17 07:05 06/15/17 07:05 - Constitutional Appears: Non-toxic, No Acute Distress - Head Exam Head Exam: NORMAL INSPECTION - ENT Exam ENT Exam: Mucous Membranes Moist - Neck Exam Neck Exam: absent: Lymphadenopathy, Meningismus - Respiratory Exam Respiratory Exam: Decreased Breath Sounds - Cardiovascular Exam Cardiovascular Exam: +S1, +S2 - GI/Abdominal Exam GI & Abdominal Exam: Soft. absent: Tenderness Assessment and Plan - Assessment and Plan (Free Text) Plan: Assessment Probable left lower extremity cellulitis, improving DM HTN chronic renal failure peripheral neuropathy anxiety disorder history of dvierticulosis gout obesity with BMI 31 Plan on Teflaro day 2; blood cx are negative; wound cx showing Serratia, Corynebacterium; reviewed Podiatry evaluation and recommendations when ready for discharge, the patient can be switched to PO Vantin and PO Doxycycline for another [address] Oconnor
--- NOTE | 2017-06-15 15:40 | CP.PCM.PN ---
Subjective - Date & Time of Evaluation Date of Evaluation: 06/15/17 Time of Evaluation: 15:34 - Subjective Subjective: 72 year old diabetic male see at bedside for two left lateral leg ulcerations. Patient states that his pain is decreased today and that overall he is feeling well. Denies any acute overnight events or further pedal complaints at this time. Denies N/V/F/C/CP/SOB Objective - Vital Signs/Intake and Output Vital Signs (last 24 hours): Temp Pulse Resp BP Pulse Ox 98.1 F 60 18 133/84 95 06/15/17 07:56 06/15/17 07:56 06/15/17 07:56 06/15/17 09:33 06/15/17 07:56 Intake and Output: 06/15/17 06/15/17 06:59 18:59 Intake Total 960 300 Balance 960 300 - Medications Medications: Current Medications Allopurinol (Zyloprim) 100 mg PO DAILY [facility] Last Admin: 06/15/17 09:31 Dose: 100 mg Alprazolam (Xanax) 0.25 mg PO DAILY [facility] PRN Reason: Protocol Stop: 06/21/17 10:01 Last Admin: 06/15/17 09:31 Dose: 0.25 mg Amlodipine Besylate (Norvasc) 10 mg PO DAILY [facility] Last Admin: 06/15/17 09:33 Dose: 10 mg Aspirin (Ecotrin) 81 mg PO DAILY [facility] Last Admin: 06/15/17 09:32 Dose: 81 mg Cholecalciferol (Vitamin D) 1,000 iu PO DAILY [facility] Last Admin: 06/15/17 09:31 Dose: 1,000 iu Doxazosin Mesylate (Cardura) 2 mg PO DAILY [facility] Last Admin: 06/15/17 09:32 Dose: 2 mg Heparin Sodium (Porcine) (Heparin) 5,000 units SC Q12 [facility] PRN Reason: Protocol Last Admin: 06/15/17 09:32 Dose: 5,000 units Ceftaroline Fosamil 300 mg/ (Sodium Chloride) 50 mls @ 50 mls/hr IVPB Q12H [facility] PRN Reason: Protocol Stop: 06/20/17 22:01 Last Admin: 06/15/17 11:49 Dose: 50 mls/hr Sodium Chloride (Sodium Chloride 0.9%) 1,000 mls @ 100 mls/hr IV .Q10H [facility] Last Admin: 06/15/17 09:40 Dose: 100 mls/hr Levothyroxine Sodium (Synthroid) 88 mcg PO 0600 [facility] Last Admin: 06/15/17 05:01 Dose: 88 mcg [id number]-8-[id number] Ethyl Esters (Lovaza) 1 gm PO DAILY [facility] Last Admin: 06/15/17 09:31 Dose: 1 gm - Labs Labs: 06/15/17 07:05 06/15/17 07:05 - Constitutional Appears: Well, Non-toxic, No Acute Distress - Extremities Exam Additional comments: LLE focused exam: Vasc: DP/PT pulses diminished 1/4 b/l. CFT < 3 seconds to all digits. Skin temperature warm to warm from proximal to distal. Mild pitting edema noted to b/ l legs Neuro: Epicritic and protective sensation grossly diminished Derm: Two ulcerations measuring roughly 1.0 x 1.0 x 0.3 cm each noted to lateral aspect of left leg. No purulence, malodor, periwound erythema or other clinical signs of infection noted to either wound at this time. Venous stasis dermatitis with hemosiderin deposition noted to left leg MSK: Mild POP noted to ulceration sites - Neurological Exam Neurological Exam: Alert, Awake, Oriented x3 - Psychiatric Exam Psychiatric exam: Normal Affect, Normal Mood Assessment and Plan - Assessment and Plan (Free Text) Assessment: 72 year old man with two ulcerations to lateral left leg secondary to DM Plan: Patient seen and evaluated at bedside Charts, labs and vitals reviewed; afebrile, WBC 5.9 Wounds dressed with xeroform, gauze, kerlix, and SANJEEV Advised patient to keep dressing C/D/I SRINIVASA + for calcified vessels Venous duplex - for DVT Wound culture shows no growth after 24 hours Patient + for bilateral ta's cysts Podiatry will continue to follow while patient in house
--- NOTE | 2017-06-16 | CP.PCM.DIS ---
Provider - Provider Date of Admission: 06/13/17 13:23 Attending physician: Vee Oconnor MD Primary care physician: Woodrow Garcia MD Consults: Podiatry: Dr. Samy Kessler Infectious Disease: Dr. Aki Valdez Time Spent in preparation of Discharge (in minutes): 30 Diagnosis - Discharge Diagnosis (1) Cellulitis of leg Status: Acute Hospital Course - Lab Results Lab Results: Micro Results 06/13/17 13:59 Blood-Venous Blood Culture - Preliminary NO GROWTH AFTER 48 HOURS 06/13/17 13:59 Blood-Venous Blood Culture - Preliminary NO GROWTH AFTER 48 HOURS 06/13/17 14:00 Leg - Left Gram Stain - Final 06/13/17 14:00 Leg - Left Wound Culture - Final Serratia Marcescens Corynebacterium Species 06/14/17 08:20 Leg - Left Gram Stain - Final 06/14/17 08:20 Leg - Left Wound Culture - Preliminary NO GROWTH AFTER 24 HOURS Most Recent Lab Values WBC 5.9 10^3/ul (4.5-11.0) 06/15/17 07:05 RBC 3.29 10^6/uL (3.5-6.1) L 06/15/17 07:05 Hgb 10.4 g/dL (14.0-18.0) L 06/15/17 07:05 Hct 30.0 % (42.0-52.0) L 06/15/17 07:05 MCV 91.2 fl (80.0-105.0) 06/15/17 07:05 MCH 31.6 pg (25.0-35.0) 06/15/17 07:05 MCHC 34.7 g/dl (31.0-37.0) 06/15/17 07:05 RDW 12.9 % (11.5-14.5) 06/15/17 07:05 Plt Count 218 10^3/uL (120.0-450.0) 06/15/17 07:05 MPV 10.1 fl (7.0-11.0) 06/15/17 07:05 Gran % 63.5 % (50.0-68.0) 06/15/17 07:05 Lymph % (Auto) 25.5 % (22.0-35.0) 06/15/17 07:05 [place] % (Auto) 7.3 % (1.0-6.0) H 06/15/17 07:05 Eos % (Auto) 3.2 % (1.5-5.0) 06/15/17 07:05 Baso % (Auto) 0.5 % (0.0-3.0) 06/15/17 07:05 Gran # 3.76 (1.4-6.5) 06/15/17 07:05 Lymph # 1.5 (1.2-3.4) 06/15/17 07:05 [place] # 0.4 (0.1-0.6) 06/15/17 07:05 Eos # 0.2 (0.0-0.7) 06/15/17 07:05 Baso # 0.03 K/mm3 (0.0-2.0) 06/15/17 07:05 Sodium 140 mmol/L (132-148) 06/15/17 07:05 Potassium 4.1 mmol/L (3.6-5.0) 06/15/17 07:05 Chloride 106 mmol/L (98-107) 06/15/17 07:05 Carbon Dioxide 25 mmol/L (21-33) 06/15/17 07:05 Anion Gap 13 (10-20) 06/15/17 07:05 BUN 40 mg/dL (7-21) H 06/15/17 07:05 Creatinine 3.1 mg/dL (0.5-1.4) H 06/15/17 07:05 Est GFR ( Amer) 24 06/15/17 07:05 Est GFR (Non-Af Amer) 20 06/15/17 07:05 POC Glucose (mg/dL) 107 mg/dL (65-110) 06/15/17 11:47 Random Glucose 92 mg/dL (70-110) 06/15/17 07:05 Hemoglobin A1c 6.0 % (4.2-6.5) 06/13/17 14:01 Calcium 9.5 mg/dL (8.4-10.5) 06/15/17 07:05 Total Bilirubin 0.4 mg/dL (0.2-1.3) 06/15/17 07:05 AST 33 U/L (15-59) 06/15/17 07:05 ALT 25 U/L (7-56) 06/15/17 07:05 Alkaline Phosphatase 73 U/L (38-133) 06/15/17 07:05 Total Protein 6.4 g/dL (5.8-8.3) 06/15/17 07:05 Albumin 3.4 g/dL (3.0-4.8) 06/15/17 07:05 Globulin 3.0 gm/dL 06/15/17 07:05 Albumin/Globulin Ratio 1.1 (1.1-1.8) 06/15/17 07:05 Procalcitonin < 0.05 NG/ML (0.19-0.49) L 06/13/17 14:01 - Hospital Course Hospital Course: Patient is a 72 year old male with past medicaly history of DM2, HTN, CKD, neuropathy, anxiety, diverticulosis and gout who was admitted for left lower leg cellulitis. The patient was evaluated in the ED and found to have significant cellulitis of his left lower extremity with open wounds draining yellow pus and serosanguious fluid. An tibia/fibula xray of his left lower extremity showed large soft tissue calcification posterior to the tibia measuring 11cm in length and 0.8 cm in thickness as well as no acute findings. Wound cultures were taken and the patient was given Ceftaroline due to CKD status. Podiatry and Infectious disease were consulted. SRINIVASA of lower extremities were preformed and indicated calcified vessels. Venous duplex of lower extremities were preformed and found to be negative for DVT and positive for ta cysts bilateral. Podiatry evaluated the patient and preformed wound care for the patient's cellulitis and recommended immediate infectious disease consultation. Infectious disease evaluated the patient and recommended continued Teflaro antibiotic administration. Patient wound culture noted growth of Serratia and Cornyebacteirum and per ID recommendation patient was switched to PO Vantin and Doxycycline for planned 7 day course outpatient. Patient was evaluated to be hemodynamically stable, afebrile with stable cellulitis of the left lower extremity. He was educated on proper wound care and medication regiment and was understanding. He was discharged with planned outpatient follow up. - Date & Time of H&P Date of H&P: 06/13/17 Time of H&P: 17:29 Discharge Exam - Head Exam Head Exam: NORMAL INSPECTION - Eye Exam Eye Exam: EOMI, PERRL - Respiratory Exam Respiratory Exam: Clear to PA & Lateral, NORMAL BREATHING PATTERN - Cardiovascular Exam Cardiovascular Exam: REGULAR RHYTHM, +S1, +S2 - GI/Abdominal Exam GI & Abdominal Exam: Normal Bowel Sounds, Soft - Extremities Exam Extremities exam: full ROM, pedal pulses present Additional comments: left lower leg cellulitis with wound dressing c/d/i - Back Exam Back exam: FULL ROM, NORMAL INSPECTION - Neurological Exam Neurological exam: Alert, CN II-XII Intact, Normal Gait, Oriented x3, Reflexes Normal - Psychiatric Exam Psychiatric exam: Normal Affect, Normal Mood - Skin Skin Exam: Dry, Intact, Normal Color, Warm Additional comments: left lower leg eyrthema and warmth secondary to cellulitis Discharge Plan - Discharge Medications Prescriptions: Cefpodoxime [Vantin] 200 mg PO BID #14 tab Doxycycline Hyclate 100 mg PO BID #14 capsule - Follow Up Plan Condition: STABLE Disposition: HOME/ ROUTINE Instructions: Wound Infection (GEN), Cellulitis (GEN), Diabetes Mellitus Type 1 in Adults (DC), Cholesterol and Your Health (GEN), Hypertension (GEN) Additional Instructions: Wound clinic Friday, 06/18 f/u with Dr. Garcia in 1 week continue with antibiotic vantin 200 mg BID for 7 days, doxycycline 100 mg BID for 7 days. follow up with Dr. Kessler for scheduled surgery return to ED if symptoms worsen (ie:cellulitis increases in size, fever, chills , fainting) Referrals: Woodrow Garcia MD [Primary Care Provider] -
== END 2017-06-15 15:47 | disposition home or self-care (01) | DRG 603 ==
LOC: ED 09:46 → ERH 13:23 → 5RNO 15:31
PROVIDERS: ADMIT Hospitalist; ATTEND Hospitalist
DX: L03.116 Cellulitis of left lower limb (principal); L97.829 Non-pressure chronic ulcer of other part of left lower leg with unspecified severity; E11.622 Type 2 diabetes mellitus with other skin ulcer; E11.42 Type 2 diabetes mellitus with diabetic polyneuropathy; I12.9 Hypertensive chronic kidney disease with stage 1 through stage 4 chronic kidney disease, or unspecified chronic kidney disease; E11.22 Type 2 diabetes mellitus with diabetic chronic kidney disease; N18.9 Chronic kidney disease, unspecified; E03.9 Hypothyroidism, unspecified; K59.00 Constipation, unspecified; F41.9 Anxiety disorder, unspecified; M10.9 Gout, unspecified; M19.90 Unspecified osteoarthritis, unspecified site; K57.90 Diverticulosis of intestine, part unspecified, without perforation or abscess without bleeding; J44.9 Chronic obstructive pulmonary disease, unspecified; E66.9 Obesity, unspecified; Z68.31 Body mass index [BMI] 31.0-31.9, adult; Z87.891 Personal history of nicotine dependence; Z79.82 Long term (current) use of aspirin

== ENCOUNTER 2017-12-29 08:56 | Emergency (ER) | payer MEDICARE ==
[2017-12-29 08:56] VITALS: BMI 30.6
[2017-12-29 09:15] VITALS: TEMP 98.2
--- NOTE | 2017-12-29 11:22 | ED PDOC ---
Arrival/HPI - General Chief Complaint: Shortness Of Breath Time Seen by Provider: 12/29/17 09:58 - History of Present Illness Narrative History of Present Illness (Text): you were treated in the ED today for htn, anxiety, diabetes, kidney insufficiency and now having fluctuance of blood pressure, coughing, with mild difficulty breathing which has resolved, no chest pain but a week or so of left shoulder discomfort, and clarified no weakness/fatigue but felt a bit anxious and otherwise without any trauma/fall/nausea/vomiting/headache/dizziness/ difficulty breathing/chest pain/abdomen pain/numbness/tingling/loss of limb function/pain with urination/travel/prior blood clots/prior cancer/thoughts to harm yourself or others or hallucinations. 12/29/17 15:12 Time/Duration: 24 hours Symptom Onset: Gradual Symptom Course: Unchanged Quality: Aching Severity Level: 1 Activities at Onset: Rest Context: Sitting Past Medical History - Provider Review Nursing Documentation Reviewed: Yes - Travel History Have you recently traveled outside [place] w/in the past 3 mons?: No - Infectious Disease Hx of Infectious Diseases: None - Tetanus Immunization Tetanus Immunization: Unknown - Cardiac Hx Cardiac Disorders: Yes Hx Hypertension: Yes - Pulmonary Hx Respiratory Disorders: Yes Hx Chronic Obstructive Pulmonary Disease (COPD): Yes - Neurological Hx Neurological Disorder: Yes Hx Paralysis: No Other/Comment: neuropathy - HEENT Hx HEENT Disorder: No Hx Blind: No - Renal Hx Renal Disorder: Yes Hx Renal Failure: Yes - Endocrine/Metabolic Hx Endocrine Disorders: Yes Hx Diabetes Mellitus Type 2: Yes Hx Hypothyroidism: Yes - Hematological/Oncological Hx Blood Disorders: No Hx Blood Transfusions: No Hx Blood Transfusion Reaction: No - Integumentary Hx Dermatological Disorder: No - Musculoskeletal/Rheumatological Hx Musculoskeletal Disorders: No - Gastrointestinal Hx Gastrointestinal Disorders: Yes Hx Diverticulitis: Yes (and diverticulosis) Hx Gastroesophageal Reflux: Yes - Genitourinary/Gynecological Hx Genitourinary Disorders: No - Psychiatric Hx Psychophysiologic Disorder: No Hx Emotional Abuse: No Hx Physical Abuse: No Hx Substance Use: No - Surgical History Other/Comment: umbilical hernia repair - Anesthesia Hx Anesthesia: Yes Hx Anesthesia Reactions: No Hx Malignant Hyperthermia: No - Suicidal Assessment Feels Threatened In Home Enviroment: No Family/Social History - Physician Review Nursing Documentation Reviewed: Yes Family/Social History: No Known Family HX Smoking Status: Former Smoker Hx Alcohol Use: No Hx Substance Use: No Hx Substance Use Treatment: No Allergies/Home Meds Allergies/Adverse Reactions: Allergies No Known Allergies Allergy (Verified 06/13/17 09:51) Home Medications: Home Meds Medication Instructions Recorded Confirmed Allopurinol [Zyloprim] 100 mg PO DAILY 06/13/17 12/29/17 Aspirin [Adult Low Dose Aspirin EC] 81 mg PO DAILY 06/13/17 12/29/17 Doxazosin [Cardura] 2 mg PO DAILY 06/13/17 12/29/17 Esomeprazole Magnesium [Nexium] 40 mg PO DAILY 06/13/17 12/29/17 Levothyroxine [Synthroid] 88 mcg PO DAILY 06/13/17 12/29/17 [id number] Ethyl Esters [OMEGA 3] 1 tab PO DAILY 06/13/17 12/29/17 amLODIPine [Norvasc] 10 mg PO DAILY 06/13/17 12/29/17 Cholecalciferol [Vitamin D] 2,000 unit PO DAILY 12/29/17 12/29/17 Fluticasone Furoate [Arnuity 100 mcg IH DAILY 12/29/17 12/29/17 Ellipta] Paricalcitol [Zemplar] 2 mcg PO MWF 12/29/17 12/29/17 Umeclidinium Brm/Vilanterol Tr 1 pow IH DAILY 12/29/17 12/29/17 [Anoro Ellipta] Review of Systems - Review of Systems Constitutional: Normal Eyes: Normal ENT: Normal Respiratory: SOB, Cough Cardiovascular: Normal Gastrointestinal: Normal Genitourinary Male: Normal Musculoskeletal: Arthralgias Skin: Normal Neurological: Normal Hemo/Lymphatic: Normal Psychiatric: Normal Physical Exam Vital Signs Reviewed: Yes Vital Signs Temp Pulse Resp BP Pulse Ox 12/29/17 11:51 47 L 18 144/87 97 12/29/17 09:13 98.2 F 60 20 165/93 H 99 Temperature: Afebrile Blood Pressure: Hypertensive Pulse: Regular Respiratory Rate: Normal Appearance: Positive for: Well-Appearing, Non-Toxic, Comfortable Pain Distress: None Mental Status: Positive for: Alert and Oriented X 3 - Systems Exam Head: Present: Atraumatic, Normocephalic Pupils: Present: PERRL Extroacular Muscles: Present: EOMI Conjunctiva: Present: Normal Ears: Present: Normal Mouth: Present: Moist Mucous Membranes Pharnyx: Present: Normal Nose (External): Present: Atraumatic Nose (Internal): Present: Normal Inspection Neck: Present: Normal Range of Motion Respiratory/Chest: Present: Clear to Auscultation, Good Air Exchange Cardiovascular: Present: Regular Rate and Rhythm Abdomen: No: Tenderness, Distention, Normal Bowel Sounds, Peritoneal Signs, Rebound, Guarding, McBurney's Point Tender, Rovsing's Sign Present, Hernias, Feeding Tubes, Ostomy Tubes, Mass/Organomegaly, Scars, Other Back: Present: Normal Inspection Upper Extremity: Present: Normal Inspection, Other (left upper shoulder from, otherwise warm/sensation, good pulses radial/pink. no specific tenderness) Lower Extremity: Present: Normal Inspection Neurological: Present: GCS=15, CN II-XII Intact, Speech Normal, Motor Func Grossly Intact Skin: Present: Warm, Normal Color Psychiatric: Present: Alert, Oriented x 3, Normal Insight, Normal Concentration. No: Normal Affect, Normal Mood, Anxious, Agitated, Depressed Mood, Suicidal Ideation, Homicidal Ideation, Delusional, Hallucinations, Intoxicated, Lethargic, Other Medical Decision Making ED Course and Treatment: you were treated in the ED today for htn, anxiety, diabetes, kidney insufficiency and now having fluctuance of blood pressure, coughing, with mild difficulty breathing which has resolved, no chest pain but a week or so of left shoulder discomfort, and clarified no weakness/fatigue but felt a bit anxious and otherwise without any trauma/fall/nausea/vomiting/headache/dizziness/ difficulty breathing/chest pain/abdomen pain/numbness/tingling/loss of limb function/pain with urination/travel/prior blood clots/prior cancer/thoughts to harm yourself or others or hallucinations. You were otherwise breathing easily, pink moist lips, smiling and talking easily, good strength/sensation, alert/ oriented, walking easily, clear lungs, no abdomen tenderness, no fever temp 98.2 , stable heart rate 60, stable breathing rate 20, excellent oxygen level 99% room air, elevated blood pressure 165/93 and repeat 144/87 which we recommend repeat in 2-3 days primary care office to determine further treatment, you have blood tests no infection count 6.4, stable blood level hemoglobin 10/platelets 164, stable chemistry, similar creatinine elevation 3.3 from prior 3.1 (06/15/17 and 2.9 (06/14/17), heart blood test negative, mild increase of heart failure test 1100 with some age appropriate factor, urine no acute sign of infection, influenza test negative, chest xray no active disease, left shoulder xray no acute findings, ECG sinus rhythm, observation done in the ED with improvement, counselled to stay in the hospital for further observation/care but you refused and cautioned for complications/ but you stated you feel improved and thus wanted to go home with son-in-law. 1. Recommend continue home medications. 2. Recommend monitor symptoms. 3. Recommend follow-up primary care 1 day to review symptoms, referral to cardiology and pulmonary clinic for mildly high heart failure test 1100 to ensure no complications, urology clinic for elevated kidney test and protein in urine to ensure no complications. 3. If any worsening pain, fever, chills, nausea, vomiting, difficulty breathing, numbness , loss of limb function, pain with urination or any medical condition then return to the ED. Report Date : 12/29/2017 12:40:52 Procedure: Chest xray Dictator : Mango Hylton MD IMPRESSION: No active disease. Report Date : 12/29/2017 12:43:08 PROCEDURE: Radiographs of the Left Shoulder Dictator : Mango Hylton MD IMPRESSION: No acute findings 12/29/17 15:09 12/29/17 15:13 12/29/17 15:16 12/29/17 15:23 Reassessment Condition: Re-examined, Improved - Lab Interpretations Lab Results: 12/29/17 11:49 12/29/17 11:49 Lab Results 12/29/17 11:49: Sodium 144, Potassium 4.3, Chloride 110 H, Carbon Dioxide 27, Anion Gap 11, BUN 48 H, Creatinine 3.3 H, Est GFR ( Amer) 22, Est GFR ( Non-Af Amer) 18, Random Glucose 104, Calcium 10.3, Magnesium 2.1, Total Bilirubin 0.5, AST 44, ALT 34, Alkaline Phosphatase 78, Lactate Dehydrogenase 509, Total Creatine Kinase 174, Troponin I 0.03 D, NT-Pro-B Natriuret Pep 1100 H, Total Protein 7.1, Albumin 3.8, Globulin 3.3, Albumin/Globulin Ratio 1.1 12/29/17 11:49: Urine Color Yellow, Urine Appearance Sl cloudy, Urine pH 6.5, Ur Specific [place] 1.020, Urine Protein >=300 H, Urine Glucose (UA) 100 H, Urine Ketones Negative, Urine Blood Moderate H, Urine Nitrate Negative, Urine Bilirubin Negative, Urine Urobilinogen 0.2, Ur Leukocyte Esterase Negative, Urine RBC 10 - 15, Urine WBC 0 - 2, Ur Epithelial Cells None, Urine Bacteria Many 12/29/17 11:49: PT 13.2 H, INR 1.14 H, APTT 27.9 12/29/17 11:49: WBC 6.4, RBC 3.28 L, Hgb 10.4 L, Hct 30.3 L, MCV 92.4, MCH 31.7 , MCHC 34.3, RDW 13.3, Plt Count 182, MPV 10.8, Gran % 61.9, Lymph % (Auto) 27.0 , [place] % (Auto) 8.3 H, Eos % (Auto) 2.5, Baso % (Auto) 0.3, Gran # 3.95, Lymph # (Auto) 1.7, [place] # (Auto) 0.5, Eos # (Auto) 0.2, Baso # (Auto) 0.02 12/29/17 11:02: Influenza Typ A,B (EIA) Negative for flu a/b I have reviewed the lab results: Yes - RAD Interpretation Radiology Orders: 12/29/17 10:49 CHEST TWO VIEWS (PA/LAT) [RAD] Stat 12/29/17 10:50 SHOULDER LEFT [RAD] Stat Filter Changer: Radiologist (cxr, left shoulder see mdm) - EKG Interpretation Interpreted by ED Physician: Yes (SR with PVCs) Type: 12 lead EKG Comparison: Similar to previous EKG (other than PVCs similar to 11/23/16) - Medication Orders Current Medication Orders: Discontinued Medications Aspirin (Aspirin Supp) 300 mg RC STAT STA Stop: 12/29/17 14:25 NIHSS Stroke Scale 3 - Date/Time Evaluation Performed Date Performed: 12/29/17 When Was NIHSS Performed: Baseline - How Severe is the Stroke Level of Consciousness: 0=Alert LOC to Questions: 0=Both comments correct LOC to commands: 0=Obeys both correctly Best Gaze: 0=Normal Visual: 0=No visual loss Facial: 0=Normal Motor Arm - Left: 0=No drift Motor Arm - Right: 0=No drift Motor Leg - Left: 0=No drift Motor Leg - Right: 0=No drift Limb Ataxia: 0=Absent Sensory: 0=Normal Best Language: 0=No aphasia Dysarthia: 0=Normal articulation Extinction & Inattention (Neglect): 0=Normal, no object Score: 0 Disposition/Present on Arrival - Present on Arrival Any Indicators Present on Arrival: No History of DVT/PE: No History of Uncontrolled Diabetes: No Urinary Catheter: No History of Decub. Ulcer: No History Surgical Site Infection Following: None - Disposition Have Diagnosis and Disposition been Completed?: Yes Diagnosis: Cough Disposition: HOME/ ROUTINE Disposition Time: 15:21 Patient Plan: Discharge Condition: IMPROVED Discharge Instructions (ExitCare): High Blood Pressure in Adults Additional Instructions: you were treated in the ED today for htn, anxiety, diabetes, kidney insufficiency and now having fluctuance of blood pressure, coughing, with mild difficulty breathing which has resolved, no chest pain but a week or so of left shoulder discomfort, and clarified no weakness/fatigue but felt a bit anxious and otherwise without any trauma/fall/nausea/vomiting/headache/dizziness/ difficulty breathing/chest pain/abdomen pain/numbness/tingling/loss of limb function/pain with urination/travel/prior blood clots/prior cancer/thoughts to harm yourself or others or hallucinations. You were otherwise breathing easily, pink moist lips, smiling and talking easily, good strength/sensation, alert/ oriented, walking easily, clear lungs, no abdomen tenderness, no fever temp 98.2 , stable heart rate 60, stable breathing rate 20, excellent oxygen level 99% room air, elevated blood pressure 165/93 and repeat 144/87 which we recommend repeat in 2-3 days primary care office to determine further treatment, you have blood tests no infection count 6.4, stable blood level hemoglobin 10/platelets 164, stable chemistry, similar creatinine elevation 3.3 from prior 3.1 (06/15/17 and 2.9 (06/14/17), heart blood test negative, mild increase of heart failure test 1100 with some age appropriate factor, urine no acute sign of infection, influenza test negative, chest xray no active disease, left shoulder xray no acute findings, ECG sinus rhythm, observation done in the ED with improvement, counselled to stay in the hospital for further observation/care but you refused and cautioned for complications/ but you stated you feel improved and thus wanted to go home with son-in-law. 1. Recommend continue home medications. 2. Recommend monitor symptoms. 3. Recommend follow-up primary care 1 day to review symptoms, referral to cardiology and pulmonary clinic for mildly high heart failure test 1100 to ensure no complications, urology clinic for elevated kidney test and protein in urine to ensure no complications. 3. If any worsening pain, fever, chills, nausea, vomiting, difficulty breathing, numbness , loss of limb function, pain with urination or any medical condition then return to the ED. Forms: [employer] ([employer])
[2017-12-29 11:53] VITALS: RESP 18
[2017-12-29 12:00] LABS: BASO # 0.02 K/mm3 (0.0-2.0); BASO % 0.3 % (0.0-3.0); EOS # 0.2 (0.0-0.7); EOS % 2.5 % (1.5-5.0); GRAN # 3.95 (1.4-6.5); GRAN % 61.9 % (50.0-68.0); HEMOGLOBIN 10.4 g/dL (14.0-18.0); LYMPH # 1.7 (1.2-3.4); MEAN CELL VOLUME 92.4 fl (80.0-105.0); MEAN CORPUSCULAR HEMOGLOBIN 31.7 pg (25.0-35.0); MEAN CORPUSCULAR HGB CONC 34.3 g/dl (31.0-37.0); MEAN PLATELET VOLUME 10.8 fl (7.0-11.0); MONO # 0.5 (0.1-0.6); MONO % 8.3 % (1.0-6.0); RBC 3.28 10^6/uL (3.5-6.1); RED CELL DISTRIBUTION WIDTH 13.3 % (11.5-14.5); WHITE BLOOD COUNT 6.4 10^3/ul (4.5-11.0)
[2017-12-29 12:07] LABS: ALB/GLOB RATIO 1.1 (1.1-1.8); ALBUMIN 3.8 g/dL (3.0-4.8); CALCIUM 10.3 mg/dL (8.4-10.5); MAGNESIUM 2.1 mg/dL (1.7-2.2)
[2017-12-29 12:08] LABS: PH,URINE 6.5 (4.7-8.0); URINE BILIRUBIN NEGATIVE (NEGATIVE); URINE BLOOD MODERATE (NEGATIVE); URINE GLUCOSE (UA) 100 mg/dL (NEGATIVE); URINE LEUKOCYTE ESTERASE NEGATIVE Leu/uL (NEGATIVE); URINE NITRATE NEGATIVE (NEGATIVE); URINE PROTEIN >=300 mg/dL (<30 mg/dL); URINE UROBILINOGEN 0.2 E.U./dL (<1 E.U./dL)
[2017-12-29 12:11] LABS: INR 1.14 (0.93-1.08); PARTIAL THROMBOPLASTIN TIME 27.9 Seconds (25.1-36.5); PROTHROMBIN TIME 13.2 SECONDS (9.4-12.5)
[2017-12-29 12:12] LABS: URINE APPEARANCE SL CLOUDY (CLEAR); URINE COLOR YELLOW (YELLOW)
[2017-12-29 12:17] LABS: URINE WBC 0 - 2 /hpf (0-6)
[2017-12-29 12:19] LABS: URINE BACTERIA MANY (NEG)
[2017-12-29 12:20] LABS: TROPONIN I 0.03 ng/mL
--- NOTE | 2017-12-29 12:42 | RAD ---
HISTORY: 72yoM, cough, sob COMPARISON: 12/23/2016 TECHNIQUE: Chest PA and lateral FINDINGS: LUNGS: No active pulmonary disease. PLEURA: No significant pleural effusion identified. No pneumothorax apparent. CARDIOVASCULAR: Mild cardiomegaly OSSEOUS STRUCTURES: No significant abnormalities. VISUALIZED UPPER ABDOMEN: Normal. OTHER FINDINGS: None. IMPRESSION: No active disease.
--- NOTE | 2017-12-29 12:44 | RAD ---
PROCEDURE: Radiographs of the Left Shoulder HISTORY: 72yM, with left shoulder pain COMPARISON: No prior. FINDINGS: BONES: Normal. No fracture. JOINTS: Degenerative changes are seen in the acromioclavicular joint. SOFT TISSUES: Normal. OTHER FINDINGS: None. IMPRESSION: No acute findings
--- NOTE | 2017-12-29 14:16 | CARD ---
APPROVED REPORT EKG Measurement Heart [id number] [id number] <Conclusion> Sinus rhythm with occasional premature ventricular complexes Nonspecific T wave abnormality Abnormal ECG
[2017-12-29 15:52] VITALS: BP 151/72; PULSE 69; O2SAT 95
== END 2017-12-29 16:00 | disposition home or self-care (01) ==
LOC: ED 08:56
DX: R05 Cough (principal); I10 Essential (primary) hypertension; E11.9 Type 2 diabetes mellitus without complications; N28.9 Disorder of kidney and ureter, unspecified; Z87.891 Personal history of nicotine dependence

== ENCOUNTER 2018-06-01 06:03 | Day surgery (SDC) | payer MEDICARE ==
[2018-06-01 06:49] VITALS: BMI 30.6
[2018-06-01 07:03] LABS: BASO # 0.04 K/mm3 (0.0-2.0); BASO % 0.5 % (0.0-3.0); EOS # 0.3 (0.0-0.7); EOS % 3.6 % (1.5-5.0); GRAN # 5.81 (1.4-6.5); GRAN % 74.4 % (50.0-68.0); HEMOGLOBIN 11.8 g/dL (14.0-18.0); LYMPH % 12.5 % (22.0-35.0); MEAN CELL VOLUME 93.1 fl (80.0-105.0); MEAN CORPUSCULAR HEMOGLOBIN 31.3 pg (25.0-35.0); MEAN CORPUSCULAR HGB CONC 33.6 g/dl (31.0-37.0); MONO # 0.7 (0.1-0.6); RBC 3.77 10^6/uL (3.5-6.1); RED CELL DISTRIBUTION WIDTH 13.6 % (11.5-14.5); WHITE BLOOD COUNT 7.8 10^3/ul (4.5-11.0)
[2018-06-01] MEDS ORDERED: Lidocaine 1% Inj (20ml) ONE (07:07)
[2018-06-01] MEDS ORDERED: Bupivacaine 0.5% Inj(30mL) ONE (07:07)
[2018-06-01 07:17] LABS: INR 1.12 (0.93-1.08); PARTIAL THROMBOPLASTIN TIME 28.2 Seconds (25.1-36.5); PROTHROMBIN TIME 12.9 SECONDS (9.4-12.5)
[2018-06-01 07:18] LABS: CALCIUM 10.4 mg/dL (8.4-10.5)
[2018-06-01] MEDS ORDERED: Phenylephrine 10 mg/ml Inj ONE (07:42)
[2018-06-01] MEDS ORDERED: Propofol 10 mg/ml Inj (20 ML) ONE (07:42)
[2018-06-01] MEDS ORDERED: Midazolam 2 MG/2 ML VIAL ONE (07:42)
[2018-06-01] MEDS ORDERED: Sevoflurane - Inhalation Anesthetic Liq (250 ml) ONE (08:15)
[2018-06-01] MEDS ORDERED: ePHEDrine 50 mg/ml Inj ONE (08:27)
--- NOTE | 2018-06-01 10:14 | PCM.SURG1 ---
Surgeon's Initial Post Op Note - Surgeon's Notes Surgeon: Dr. Vasquez Operations Accountant: Traci Hayes PGY1 Type of Anesthesia: General IV Pre-Operative Diagnosis: renal Insufficiency Operative Findings: see operative report Post-Operative Diagnosis: same Operation Performed: left arm vein mapping, arteriovenous fistula placement/ formation Specimen/Specimens Removed: none Estimated Blood Loss: EBL {In ML}: 5 Blood Products Given: N/A Drains Used: No Drains Post-Op Condition: Fair Date of Surgery/Procedure: 06/01/18 Time of Surgery/Procedure: 07:40
[2018-06-01] MEDS ORDERED: HYDROmorphone 0.5 mg/0.5 ml ISec IVP PRN (10:16)
[2018-06-01] MEDS ORDERED: Sodium Chloride 0.9% 1,000 ML IV SCH (10:30)
[2018-06-01 10:35] VITALS: O2SAT 94
[2018-06-01 11:16] VITALS: BP 127/81; PULSE 72; RESP 18; TEMP 97.7
--- NOTE | 2018-06-01 12:17 | OP ---
PROCEDURE DATE: 06/01/2018 PREOPERATIVE DIAGNOSIS: Renal insufficiency. POSTOPERATIVE DIAGNOSIS: Renal insufficiency. PROCEDURE PERFORMED: 1. Venous mapping of the left upper extremity. 2. Creation of the arteriovenous fistula between the cephalic vein and radial artery in the left wrist. SURGEON: Bob Vasquez MD RAILROAD ENGINEER: Dr. Verdugo. ANESTHESIOLOGIST: Jesus Brothers DO. TYPE OF ANESTHESIA: General endotracheal anesthesia. ESTIMATED BLOOD LOSS: Minimal. SPECIMEN: None. INDICATION FOR THE PROCEDURE: The patient is a 73-year-old male with history of renal insufficiency, worsening over the past few months and is getting ready for starting hemodialysis. The patient was sent for evaluation and scheduling of creation of the AV fistula in order to have access on time working properly when dialysis needed. DESCRIPTION OF PROCEDURE: The patient was brought to the operating room, placed on the operating table in supine position. The patient was connected to the EKG, blood pressure, and pulse oximetry monitors. The patient then underwent general LMA anesthesia and was prepped and draped in the usual sterile fashion. First, standard time-out procedure took place where everybody in the room agreed as to the patient identity, diagnoses and procedure to be performed. Using venous Doppler, the left upper extremity was carefully scanned and the course of the cephalic vein was marked. All the side branches were marked as well. The course of the radial artery was also marked especially in the area of the wrist. The radial artery was about 3 mm in size and had some calcifications at the wrist area. The cephalic vein was about 3.5 mm wide at the wrist and about 5 mm wide closer to the elbow. Now, we proceeded with infiltrating the incision, which was done with lidocaine and make an incision. The incision was carried through the subcutaneous fat and flaps were raised proximally and distally on the vein. The vein was completely exposed and from the surrounding tissues. It appeared to be in adequate quality. I then proceeded with dissection of the radial artery, which was elevated 2 vessel loops. Once this was all done, the patient received 4000 units heparin IV and about 2 minutes later, we proceeded with transecting the vein distally bring it over towards the artery. The vein was marked prior to the removal in order to avoid any twisting. The vein was then distended with saline under pressure. It was distended very nicely. The artery was now clamped proximally and distally, all its side branches were clamped with bulldogs. The arteriotomy was made longitudinally for about a cm and half. Next, the standard end-to-side anastomosis between the vein and the artery was created using 6-0 Prolene stitch. Once the anastomosis was completed, the forward flow was established with bending of the fistula first and then letting the distal and open first, then reclosed proximal end of the artery, opened and forward flow was established in the fistula and then the distal end was opened again for a forward flow establishment both in the artery and the fistula. There was good flow in the fistula with mild thrill noted. The wound was now copiously irrigated. There was excellent hemostasis. There was no bleeding noted from the anastomosis. The Doppler showed excellent flow in the fistula. The wound now was closed in layers using 3-0 Vicryl for the deep dermal layer and 4-0 Monocryl for skin in subcuticular closure. The patient tolerated the procedure well and there were no complications. The patient was awakened and transferred to the recovery room for further observation. Bob Vasquez MD
== END 2018-06-01 13:00 | disposition home or self-care (01) ==
LOC: SDS 06:03
PROVIDERS: ATTEND General Practice
DX: I12.9 Hypertensive chronic kidney disease with stage 1 through stage 4 chronic kidney disease, or unspecified chronic kidney disease (principal); E11.22 Type 2 diabetes mellitus with diabetic chronic kidney disease; E11.51 Type 2 diabetes mellitus with diabetic peripheral angiopathy without gangrene; N18.4 Chronic kidney disease, stage 4 (severe); I25.10 Atherosclerotic heart disease of native coronary artery without angina pectoris; I73.9 Peripheral vascular disease, unspecified; E07.9 Disorder of thyroid, unspecified; E66.9 Obesity, unspecified; I48.91 Unspecified atrial fibrillation; M48.02 Spinal stenosis, cervical region; M71.9 Bursopathy, unspecified; L65.9 Nonscarring hair loss, unspecified; J40 Bronchitis, not specified as acute or chronic; D63.8 Anemia in other chronic diseases classified elsewhere; G60.9 Hereditary and idiopathic neuropathy, unspecified; N25.81 Secondary hyperparathyroidism of renal origin; E78.5 Hyperlipidemia, unspecified; N40.1 Benign prostatic hyperplasia with lower urinary tract symptoms; R33.8 Other retention of urine; F41.9 Anxiety disorder, unspecified; L03.116 Cellulitis of left lower limb; R09.82 Postnasal drip; M54.9 Dorsalgia, unspecified; Z68.28 Body mass index [BMI] 28.0-28.9, adult
CPT/HCPCS: 36415; 36821; 80048; 85025; 85610; 85730; J0690; J1170; J1644 ×2; J2250; J2370; J2405; J2704; J3010; J7030

== ENCOUNTER 2018-06-25 11:53 | Emergency (ER) | payer MEDICARE ==
[2018-06-25 12:09] VITALS: BMI 28.0
[2018-06-25 12:36] VITALS: RESP 17
--- NOTE | 2018-06-25 13:03 | ED PDOC ---
Arrival/HPI - General Chief Complaint: Trauma Time Seen by Provider: 06/25/18 12:29 Historian: Patient - History of Present Illness Narrative History of Present Illness (Text): 06/25/18 12:31 73yr old male presents today with headache, neck and back pain with bilateral shoulder pain s/p mechanical fall. pt states that 4 days ago he tripped and fell hitting his chin on the dresser and right shoulder on door handle. pt denies loss of consciousness. pt states he has been taking tramadol and applying ice. pt states the pain in both shoulder has resolved but he is still having a posterior headache and pain in the neck and low back. pt states the headache is located in the back of the scalp and worse with movement of the neck. pt denies blurred vision. denies numbness, weakness, tingling in the extremities. no cp or sob. no abdominal pain. Past Medical History - Provider Review Nursing Documentation Reviewed: Yes - Travel History Have you recently traveled outside [place] w/in the past 3 mons?: No - Infectious Disease Hx of Infectious Diseases: None - Tetanus Immunization Tetanus Immunization: Unknown - Cardiac Hx Hypertension: Yes Hx Pacemaker: No - Pulmonary Hx Respiratory Disorders: Yes Hx Chronic Obstructive Pulmonary Disease (COPD): Yes - Neurological Hx Paralysis: No - HEENT Hx HEENT Disorder: No Hx Blind: No - Renal Hx Renal Disorder: Yes Hx Renal Failure: Yes - Endocrine/Metabolic Hx Endocrine Disorders: Yes Hx Diabetes Mellitus Type 2: Yes Hx Hypothyroidism: Yes - Hematological/Oncological Hx Blood Transfusions: No Hx Blood Transfusion Reaction: No - Integumentary Hx Dermatological Disorder: No - Musculoskeletal/Rheumatological Hx Musculoskeletal Disorders: No - Gastrointestinal Hx Gastrointestinal Disorders: Yes Hx Diverticulitis: Yes (and diverticulosis) Hx Gastroesophageal Reflux: Yes - Genitourinary/Gynecological Hx Genitourinary Disorders: No - Psychiatric Hx Emotional Abuse: No Hx Physical Abuse: No Hx Substance Use: No - Surgical History Other/Comment: R wrist sx. Hernia repair. Liposuction - Anesthesia Hx Anesthesia: Yes Hx Anesthesia Reactions: No Hx Malignant Hyperthermia: No - Suicidal Assessment Feels Threatened In Home Enviroment: No Family/Social History - Physician Review Nursing Documentation Reviewed: Yes Family/Social History: Unknown Family HX Smoking Status: Former Smoker Hx Alcohol Use: No Hx Substance Use: No Hx Substance Use Treatment: No Allergies/Home Meds Allergies/Adverse Reactions: Allergies No Known Allergies Allergy (Verified 06/13/17 09:51) Home Medications: Home Meds Medication Instructions Recorded Confirmed Allopurinol [Zyloprim] 100 mg PO DAILY 06/13/17 06/25/18 Aspirin [Adult Low Dose Aspirin EC] 81 mg PO DAILY 06/13/17 06/25/18 Doxazosin [Cardura] 2 mg PO HS 06/13/17 06/25/18 Esomeprazole Magnesium [Nexium] 40 mg PO DAILY 06/13/17 06/25/18 Levothyroxine [Synthroid] 88 mcg PO DAILY 06/13/17 06/25/18 [id number] Ethyl Esters [OMEGA 3] 1 tab PO DAILY 06/13/17 06/25/18 amLODIPine [Norvasc] 10 mg PO DAILY 06/13/17 06/25/18 Cholecalciferol [Vitamin D 1000 IU] 2,000 unit PO DAILY 12/29/17 06/25/18 Fluticasone Furoate [Arnuity 100 mcg IH DAILY 12/29/17 06/25/18 Ellipta] Paricalcitol [Zemplar] 2 mcg PO DAILY 12/29/17 06/25/18 Sodium Bicarbonate Tab 650 mg PO BID 05/14/18 06/25/18 traMADol [Ultram] 50 mg PO Q6H PRN 06/01/18 06/25/18 Umeclidinium Brm/Vilanterol Tr 1 puff IH DAILY 06/25/18 06/25/18 [Anoro Ellipta 62.5-25 Mcg INH] Review of Systems - Review of Systems Constitutional: absent: Fatigue, Fevers Eyes: absent: Vision Changes, Photophobia, Eye Pain Respiratory: absent: SOB, Cough Cardiovascular: absent: Chest Pain, Palpitations Gastrointestinal: absent: Abdominal Pain, Nausea, Vomiting Genitourinary Male: absent: Dysuria, Frequency Musculoskeletal: Back Pain, Neck Pain Skin: absent: Rash, Pruritis Neurological: Headache. absent: Dizziness Psychiatric: absent: Anxiety, Depression, Suicidal Ideation Physical Exam Vital Signs Reviewed: Yes Vital Signs Temp Pulse Resp BP Pulse Ox 06/25/18 15:47 98.5 F 70 17 120/80 98 06/25/18 15:42 98.5 F 70 17 120/80 98 06/25/18 14:07 58 L 17 129/61 96 06/25/18 12:35 98.7 F 77 17 137/85 97 Temperature: Afebrile Blood Pressure: Normal Pulse: Regular Respiratory Rate: Normal Appearance: Positive for: Well-Appearing, Non-Toxic, Comfortable Pain Distress: None Mental Status: Positive for: Alert and Oriented X 3 - Systems Exam Head: Present: Ecchymosis (+ ecchymosis noted to inferior aspect of chin). No: Tenderness, Swelling, Abrasion, Laceration Pupils: Present: PERRL Extroacular Muscles: Present: EOMI Mouth: Present: Moist Mucous Membranes. No: Drooling, Trismus Neck: Present: MIDLINE TENDERNESS, Paraspinal Tenderness, Trachea Midline, Other (+ bilateral trapezius tenderness). No: Normal Range of Motion Respiratory/Chest: Present: Clear to Auscultation, Good Air Exchange. No: Respiratory Distress, Accessory Muscle Use, Tender to Palpation (no tenderness, no step offs, no crepitus) Cardiovascular: Present: Regular Rate and Rhythm Abdomen: No: Tenderness, Distention, Rebound, Guarding Back: Present: Normal Inspection, Paraspinal Tenderness (+ minimal right sided lower lumbar paraspinal tenderness. ). No: Midline Tenderness Upper Extremity: Present: Normal ROM, NORMAL PULSES, Neurovascularly Intact, Capillary Refill < 2s, Other (+ ecchymosis noted to posterior right shoulder. ) . No: Tenderness, Swelling, Erythema, Deformity Lower Extremity: Present: Normal ROM Neurological: Present: GCS=15 Skin: Present: Warm, Dry, Normal Color. No: Rashes Psychiatric: Present: Alert, Oriented x 3 Medical Decision Making ED Course and Treatment: 06/25/18 13:26 73yr old male with headache, neck and back pain s/p mechanical fall [address]: FINDINGS: HEMORRHAGE: No intracranial hemorrhage. BRAIN: Good corticomedullary differentiation is seen. Proportional, diffuse expansion of the ventriculosulcal and cisternal spaces is appreciated with white matter lucency compatible with diffuse cerebral atrophy and chronic microangiopathy. No suspicious extra-axial fluid collection is identified and the midline brain anatomy appears grossly nonfocal as imaged. There is no mass effect throughout. VENTRICLES: Unremarkable. No hydrocephalus. CALVARIUM: No destructive bony lesion or displaced fracture identified including through the skullbase. A small left parietal hematoma is appreciated approaching the vertex. Atherosclerotic changes seen the bilateral cavernous ICA segments. PARANASAL SINUSES: Unremarkable as visualized. No significant inflammatory changes. MASTOID AIR CELLS: Unremarkable as visualized. No inflammatory changes. OTHER FINDINGS: None. IMPRESSION: Limited age related neuro degenerative changes which appear age-appropriate. No acute intracranial findings or displaced fracture. Note is made of a small left parietal hematoma approaching the vertex. maxillofacial ct: FINDINGS: NASAL BONES: Unremarkable. ORBITS: Unremarkable. PARANASAL SINUSES/ MASTOIDS: No sinusitis apparent. Mild left selam bullosa noted. Rightward bony nasal septal deviation without fracture MAXILLA: Unremarkable. MANDIBLE/ TEMPOROMANDIBULAR JOINTS: Unremarkable. SKULL BASE: Unremarkable. TEMPORAL BONES: Middle ears and mastoid grossly unremarkable. OTHER FINDINGS: None. IMPRESSION: No acute findings in non contrast enhanced CT of the maxillofacial bones. cspine ct: FINDINGS: VERTEBRAE: No fracture. Normal alignment is minimally interrupted by a grade 1 spondylolisthesis at C5-6 with C5 minimally anterior to C6 by a few mm. No destructive bony lesion. DISCS/SPINAL CANAL/NEURAL FORAMINA: Mild right and moderate to severe left degenerative neural foraminal stenosis is appreciated at C4-5 due to uncovertebral and facet arthropathy with mild left C5-6 and C6-7 degenerative neural foraminal stenosis appreciated as well. Discs heights are grossly preserved. PARASPINAL SOFT TISSUES: Unremarkable. OTHER FINDINGS: None. IMPRESSION: Likely degenerative limited grade 1 spondylolisthesis at C5-6 with no fracture or destructive bony lesion appreciable focally. Significant bony central canal or neural foraminal stenosis identified. Multilevel degenerative neural foraminal stenosis at the left C5, C6 and C7 foramina as discussed above. lumbar ct: FINDINGS: VERTEBRAE: Multilevel mild lumbar spondylosis diffusely noted. Multilevel facet joint degenerative arthropathy appears relatively advanced throughout. No fracture. Normal alignment. DISCS/SPINAL CANAL/NEURAL FORAMINA: L1-2: Unremarkable. L2-3: Unremarkable. L3-4: Unremarkable. L4-5: Unremarkable. L5-S1: Unremarkable. PARASPINAL SOFT TISSUES: Unremarkable. OTHER FINDINGS: None. IMPRESSION: No fracture or spondylolisthesis identified. Mild multilevel degenerative spondylosis without central canal or neural foraminal stenosis grossly evident. If symptoms persist or worsen follow-up MRI may be considered. 06/25/18 13:28 discussed results with patient and his . pt states he feels better already just knowing that results are good. denies dizziness, or weakness. will try valium 2mg PO pt reassessment; pt feeling better; ambulates with cane with steady gait. pt was seen and evaluated by dr. sandra; advised f/u with PMD and spincal specialist; advised immediate return if symptoms worsen,persist or if new symptoms develop. Patient and his verbalized understanding of discharge instructions and need for immediate followup. all aspects of this case were discussed the attending of record. impression; neck pain, head injury, back pain s/p mechanical fall valium; 1 tablet every 8 hours as needed for muscle spasms; may cause drowsiness tylenol every 4 hours as needed for pain follow up with the primary care physician within the next 2 days follow up with the orthopedist and spinal specialist within the next 2 days return immediately if symptoms worsen,persist or if new symptoms develop. Reassessment Condition: Re-examined, Improved - RAD Interpretation Radiology Orders: 06/25/18 12:29 CERVICAL SPINE W/O CONTRAST [CT] Stat HEAD W/O CONTRAST [CT] Stat LUMBAR SPINE W/O CONTRAST [CT] Stat MAXILLOFACIAL W/O CONTRAST [CT] Stat SHOULDER LEFT [RAD] Stat SHOULDER RIGHT [RAD] Stat - Medication Orders Current Medication Orders: Discontinued Medications Acetaminophen (Tylenol 325mg Tab) 975 mg PO STAT STA Stop: 06/25/18 14:55 Last Admin: 06/25/18 15:16 Dose: 975 mg MAR Pain/Vitals Document 06/25/18 15:16 [facility] (Rec: 06/25/18 15:16 [facility] [id number]) Pain Reassessment Is This A Pain ReAssessment? Yes Sleep Is patient sleeping during reassessment? No Presence of Pain Presence of Pain Yes Pain Scale Used Pain Scale Used Numeric Location Pain Location Body Site Face Intensity 3 Scale Used Numeric Diazepam (Valium) 2 mg PO ONCE ONE PRN Reason: Protocol Stop: 06/25/18 14:52 Last Admin: 06/25/18 15:16 Dose: 2 mg Disposition/Present on Arrival - Present on Arrival Any Indicators Present on Arrival: No History of DVT/PE: No History of Uncontrolled Diabetes: No Urinary Catheter: No History of Decub. Ulcer: No History Surgical Site Infection Following: None - Disposition Have Diagnosis and Disposition been Completed?: Yes Diagnosis: Neck pain, Back pain, Head injury Disposition: HOME/ ROUTINE Disposition Time: 14:58 Patient Plan: Discharge Condition: GOOD Discharge Instructions (ExitCare): Neck Pain, Closed Head Injury (DC) Additional Instructions: valium; 1 tablet every 8 hours as needed for muscle spasms; may cause drowsiness tylenol every 4 hours as needed for pain follow up with the primary care physician within the next 2 days follow up with the orthopedist and spinal specialist within the next 2 days return immediately if symptoms worsen,persist or if new symptoms develop. Prescriptions: diaZEpam [Valium] 2 mg PO Q8H PRN #6 tab PRN Reason: muscle spasms Referrals: Rad Evans MD [Staff Provider] - Follow up with primary Woodrow Garcia MD [Family Provider] - Follow up with primary Richie Leal MD [Staff Provider] - Follow up with primary Forms: [place] (German)
--- NOTE | 2018-06-25 13:19 | CT ---
Date of service: 06/25/2018 PROCEDURE: CT HEAD WITHOUT CONTRAST. HISTORY: headache COMPARISON: None available. TECHNIQUE: Axial computed tomography images were obtained through the head/brain without intravenous contrast. Radiation dose: Total exam DLP = 882.58 mGy-cm. This CT exam was performed using one or more of the following dose reduction techniques: Automated exposure control, adjustment of the mA and/or kV according to patient size, and/or use of iterative reconstruction technique. FINDINGS: HEMORRHAGE: No intracranial hemorrhage. BRAIN: Good corticomedullary differentiation is seen. Proportional, diffuse expansion of the ventriculosulcal and cisternal spaces is appreciated with white matter lucency compatible with diffuse cerebral atrophy and chronic microangiopathy. No suspicious extra-axial fluid collection is identified and the midline brain anatomy appears grossly nonfocal as imaged. There is no mass effect throughout. VENTRICLES: Unremarkable. No hydrocephalus. CALVARIUM: No destructive bony lesion or displaced fracture identified including through the skullbase. A small left parietal hematoma is appreciated approaching the vertex. Atherosclerotic changes seen the bilateral cavernous ICA segments. PARANASAL SINUSES: Unremarkable as visualized. No significant inflammatory changes. MASTOID AIR CELLS: Unremarkable as visualized. No inflammatory changes. OTHER FINDINGS: None. IMPRESSION: Limited age related neuro degenerative changes which appear age-appropriate. No acute intracranial findings or displaced fracture. Note is made of a small left parietal hematoma approaching the vertex.
--- NOTE | 2018-06-25 13:34 | CT ---
Date of service: 06/25/2018 PROCEDURE: CT MAXILLOFACIAL BONES WITHOUT CONTRAST HISTORY: fall 4 days ago COMPARISON: None available. TECHNIQUE: Contiguous axial CT images of the maxillofacial bones were obtained. Coronal and sagittal reformats were generated. Radiation dose: Total exam DLP = 736.87 mGy-cm. This CT exam was performed using one or more of the following dose reduction techniques: Automated exposure control, adjustment of the mA and/or kV according to patient size, and/or use of iterative reconstruction technique. FINDINGS: NASAL BONES: Unremarkable. ORBITS: Unremarkable. PARANASAL SINUSES/ MASTOIDS: No sinusitis apparent. Mild left selam bullosa noted. Rightward bony nasal septal deviation without fracture MAXILLA: Unremarkable. MANDIBLE/ TEMPOROMANDIBULAR JOINTS: Unremarkable. SKULL BASE: Unremarkable. TEMPORAL BONES: Middle ears and mastoid grossly unremarkable. OTHER FINDINGS: None. IMPRESSION: No acute findings in non contrast enhanced CT of the maxillofacial bones.
--- NOTE | 2018-06-25 13:46 | CT ---
Date of service: 06/25/2018 PROCEDURE: CT Cervical Spine without contrast HISTORY: neck pain COMPARISON: None available. TECHNIQUE: Axial computed tomography images were obtained of the cervical spine without the use of intravenous contrast. Coronal and sagittal reformatted images were created and reviewed. Radiation dose: Total exam DLP = 511.39 mGy-cm. This CT exam was performed using one or more of the following dose reduction techniques: Automated exposure control, adjustment of the mA and/or kV according to patient size, and/or use of iterative reconstruction technique. FINDINGS: VERTEBRAE: No fracture. Normal alignment is minimally interrupted by a grade 1 spondylolisthesis at C5-6 with C5 minimally anterior to C6 by a few mm. No destructive bony lesion. DISCS/SPINAL CANAL/NEURAL FORAMINA: Mild right and moderate to severe left degenerative neural foraminal stenosis is appreciated at C4-5 due to uncovertebral and facet arthropathy with mild left C5-6 and C6-7 degenerative neural foraminal stenosis appreciated as well. Discs heights are grossly preserved. PARASPINAL SOFT TISSUES: Unremarkable. OTHER FINDINGS: None. IMPRESSION: Likely degenerative limited grade 1 spondylolisthesis at C5-6 with no fracture or destructive bony lesion appreciable focally. Significant bony central canal or neural foraminal stenosis identified. Multilevel degenerative neural foraminal stenosis at the left C5, C6 and C7 foramina as discussed above.
--- NOTE | 2018-06-25 13:49 | CT ---
Date of service: 06/25/2018 PROCEDURE: CT Lumbar Spine without contrast HISTORY: low back pain s/p fall COMPARISON: None available. TECHNIQUE: Axial computed tomography images were obtained of the lumbar spine without the use of intravenous contrast. Coronal and sagittal reformatted images were created and reviewed. Radiation dose: Total exam DLP = 1608.87 mGy-cm. This CT exam was performed using one or more of the following dose reduction techniques: Automated exposure control, adjustment of the mA and/or kV according to patient size, and/or use of iterative reconstruction technique. FINDINGS: VERTEBRAE: Multilevel mild lumbar spondylosis diffusely noted. Multilevel facet joint degenerative arthropathy appears relatively advanced throughout. No fracture. Normal alignment. DISCS/SPINAL CANAL/NEURAL FORAMINA: L1-2: Unremarkable. L2-3: Unremarkable. L3-4: Unremarkable. L4-5: Unremarkable. L5-S1: Unremarkable. PARASPINAL SOFT TISSUES: Unremarkable. OTHER FINDINGS: None. IMPRESSION: No fracture or spondylolisthesis identified. Mild multilevel degenerative spondylosis without central canal or neural foraminal stenosis grossly evident. If symptoms persist or worsen follow-up MRI may be considered.
--- NOTE | 2018-06-25 15:29 | RAD ---
Date of service: 06/25/2018 PROCEDURE: Radiographs of the Left Shoulder HISTORY: left shoulder pain s/p fall COMPARISON: No prior. FINDINGS: BONES: No acute fracture or destructive bony lesion identified. JOINTS: Gross degenerative changes seen at the left glenohumeral joint and are stable with gross osteophyte development subchondral cyst formation and eburnation of the cortical surfaces of the joint. The acromioclavicular joint is stable considering all views. SOFT TISSUES: Normal. OTHER FINDINGS: None. IMPRESSION: Advanced osteoarthritis left shoulder. No acute fracture or dislocation. No significant interval change 12/29/2017. Stop
--- NOTE | 2018-06-25 15:30 | RAD ---
Date of service: 06/25/2018 PROCEDURE: Radiographs of the Right Shoulder HISTORY: right shoulder pain s/p fall COMPARISON: No prior. FINDINGS: BONES: No acute fracture or destructive bony lesion identified. JOINTS: Degenerative glenohumeral and acromioclavicular joint changes are appreciated with prominent osteophytes defined at the inferior margin of the glenohumeral joint. No prominent subluxation or dislocation. SOFT TISSUES: Normal. OTHER FINDINGS: None. IMPRESSION: Moderate to severe degenerative change right shoulder, with no fracture dislocation identified.
[2018-06-25 15:43] VITALS: BP 120/80; PULSE 70; TEMP 98.5; O2SAT 98
--- NOTE | 2018-06-25 18:58 | CARD ---
APPROVED REPORT Date of service: 06/25/2018 EKG Measurement Heart [id number] <Conclusion> Normal sinus rhythm Nonspecific intraventricular conduction delay Nonspecific T wave abnormality Abnormal ECG
== END 2018-06-25 15:48 | disposition home or self-care (01) ==
LOC: ED 11:53
DX: M54.2 Cervicalgia (principal); M54.5 Low back pain; S09.90XA Unspecified injury of head, initial encounter; W01.0XXA Fall on same level from slipping, tripping and stumbling without subsequent striking against object, initial encounter; E11.9 Type 2 diabetes mellitus without complications; I10 Essential (primary) hypertension; E03.9 Hypothyroidism, unspecified; Z87.891 Personal history of nicotine dependence

== ENCOUNTER 2018-11-08 15:35 | Emergency (ER) | payer MEDICARE ==
[2018-11-08 16:00] VITALS: BMI 28.7
--- NOTE | 2018-11-08 16:08 | ED PDOC ---
Arrival/HPI - General Time Seen by Provider: 11/08/18 15:36 Historian: Patient - History of Present Illness Narrative History of Present Illness (Text): 11/08/18 16:04 73 year old male, whose past diabetes, htn, CKD, neuropathy, and anxiety, who presents to the ED complaining of worsened left shoulder pain x 1 week. Patient has had pain in the left shoulder for 2-3 months but within the last week, pain has worsened. Patient denies any chest pain, neck pain, back pain, fevers, chills, n/v/d, abdominal pain, or any other complaints. Time/Duration: Prior to Arrival Symptom Onset: Gradual Symptom Course: Worsening Activities at Onset: Light Context: Home Past Medical History - Provider Review Nursing Documentation Reviewed: Yes - Infectious Disease Hx of Infectious Diseases: None - Tetanus Immunization Tetanus Immunization: Unknown - Cardiac Hx Hypertension: Yes Hx Pacemaker: No - Pulmonary Hx Respiratory Disorders: Yes Hx Chronic Obstructive Pulmonary Disease (COPD): Yes - Neurological Hx Paralysis: No - HEENT Hx HEENT Disorder: No Hx Blind: No - Renal Hx Renal Disorder: Yes Hx Renal Failure: Yes - Endocrine/Metabolic Hx Endocrine Disorders: Yes Hx Diabetes Mellitus Type 2: Yes Hx Hypothyroidism: Yes - Hematological/Oncological Hx Blood Transfusions: No Hx Blood Transfusion Reaction: No - Integumentary Hx Dermatological Disorder: No - Musculoskeletal/Rheumatological Hx Musculoskeletal Disorders: No - Gastrointestinal Hx Gastrointestinal Disorders: Yes Hx Diverticulitis: Yes (and diverticulosis) Hx Gastroesophageal Reflux: Yes - Genitourinary/Gynecological Hx Genitourinary Disorders: No - Psychiatric Hx Emotional Abuse: No Hx Physical Abuse: No Hx Substance Use: No - Surgical History Other/Comment: R wrist sx. Hernia repair. Liposuction - Anesthesia Hx Anesthesia: Yes Hx Anesthesia Reactions: No Hx Malignant Hyperthermia: No - Suicidal Assessment Feels Threatened In Home Enviroment: No Family/Social History - Physician Review Nursing Documentation Reviewed: Yes Family/Social History: Unknown Family HX Smoking Status: Former Smoker Hx Alcohol Use: No Hx Substance Use: No Hx Substance Use Treatment: No Allergies/Home Meds Allergies/Adverse Reactions: Allergies No Known Allergies Allergy (Verified 06/13/17 09:51) Home Medications: Home Meds Medication Instructions Recorded Confirmed Allopurinol [Zyloprim] 100 mg PO DAILY 06/13/17 06/25/18 Aspirin [Adult Low Dose Aspirin EC] 81 mg PO DAILY 06/13/17 06/25/18 Doxazosin [Cardura] 2 mg PO HS 06/13/17 06/25/18 Esomeprazole Magnesium [Nexium] 40 mg PO DAILY 06/13/17 06/25/18 Levothyroxine [Synthroid] 88 mcg PO DAILY 06/13/17 06/25/18 Crwce-0-Fvyz Ethyl Esters [OMEGA 3] 1 tab PO DAILY 06/13/17 06/25/18 amLODIPine [Norvasc] 10 mg PO DAILY 06/13/17 06/25/18 Cholecalciferol [Vitamin D 1000 IU] 2,000 unit PO DAILY 12/29/17 06/25/18 Fluticasone Furoate [Arnuity 100 mcg IH DAILY 12/29/17 06/25/18 Ellipta] Paricalcitol [Zemplar] 2 mcg PO DAILY 12/29/17 06/25/18 Sodium Bicarbonate Tab 650 mg PO BID 05/14/18 06/25/18 traMADol [Ultram] 50 mg PO Q6H PRN 06/01/18 06/25/18 Umeclidinium Brm/Vilanterol Tr 1 puff IH DAILY 06/25/18 06/25/18 [Anoro Ellipta 62.5-25 Mcg INH] Review of Systems - Physician Review All systems were reviewed & negative as marked: Yes - Review of Systems Constitutional: Normal Eyes: Normal ENT: Normal Respiratory: Normal. absent: SOB, Cough Cardiovascular: Normal. absent: Chest Pain Gastrointestinal: Normal. absent: Abdominal Pain, Diarrhea, Nausea, Vomiting Genitourinary Male: Normal. absent: Dysuria, Frequency Musculoskeletal: Other (Left shoulder pain). absent: Back Pain, Neck Pain Skin: Normal. absent: Rash Neurological: Normal. absent: Headache Endocrine: Normal Hemo/Lymphatic: Normal Psychiatric: Normal Physical Exam - Physical Exam Narrative Physical Exam (Text): 11/08/18 16:09 Constitutional: No acute distress. Head: Normocephalic. Atraumatic. Eyes: PERRL. ENT: Moist mucous membranes. Neck: Supple. Cardiovascular: Regular rate. Chest: No tenderness. Respiratory: Clear to auscultation bilaterally. GI: Soft. Nontender. Nondistended. Back: No CVA tenderness. Musculoskeletal: No tenderness or swelling of extremities. No deformity. Pain with ROM. Full ROM intact. Skin: No rash. Neurologic: Alert, no focal deficit. Medical Decision Making ED Course and Treatment: 11/08/18 16:10 Impression: 73 year old male presents to the ED complaining of worsened left shoulder pain x 1 week. Plan: -- EKG -- Left shoulder Xray -- reassess and disposition Progress Notes: EKG reviewed, shows Sinus rhythm at 60 bpm. QRS 124ms. No ST elevations. No change from previous. 11/08/18 17:56 Xray left shoulder reviewed, shows: Impression: Question possibility of left 4th and 5th rib fracture. correlate with physical exam. Osseus demineralization. Degenerative changes. High-riding humeral head may be seen in the setting of chronic rotator cuff injury. Ribs palpated, no crepitus, deformity, or tenderness. Discharged home, f/u Ortho, return to ED for worsening pain, fever, inability to range, or any other problem. - Scribe Statement The provider has reviewed the documentation as recorded by the Scribe Martha Parmar All medical record entries made by the Scribe were at my direction and personally dictated by me. I have reviewed the chart and agree that the record accurately reflects my personal performance of the history, physical exam, [facility] decision making, and the department course for this patient. I have also personally directed, reviewed, and agree with the discharge instructions and disposition. Disposition/Present on Arrival - Present on Arrival Any Indicators Present on Arrival: No History of DVT/PE: No History of Uncontrolled Diabetes: No Urinary Catheter: No History Surgical Site Infection Following: None - Disposition Have Diagnosis and Disposition been Completed?: Yes Diagnosis: Rotator cuff injury Disposition: HOME/ ROUTINE Disposition Time: 17:52 Patient Plan: Discharge Patient Problems: Current Active Problems Problem Status Onset Rotator cuff injury Acute Condition: STABLE Discharge Instructions (ExitCare): Rotator Cuff Injury Referrals: Woodrow Garcia MD [Primary Care Provider] - Follow up with primary Mk Rodriguez MD [Staff Provider] - Follow up with primary
[2018-11-08 16:23] VITALS: RESP 18
--- NOTE | 2018-11-08 17:51 | RAD ---
PROCEDURE: Radiographs of the Left Shoulder HISTORY: shoulder pain COMPARISON: Left shoulder radiographs 06/25/18 FINDINGS: BONES: Osseous demineralization limits evaluation for acute fracture lines. Question possibility of left 4th and 5th rib fractures; correlate with physical exam. The remainder of the visualized osseous structures appear unremarkable without acute displaced fracture. The distal clavicle and underlying ribs appear intact. JOINTS: Glenohumeral joint space narrowing. No acute dislocation. High-riding humeral head may be seen in the setting of chronic rotator cuff injury. SOFT TISSUES: Soft tissues appear unremarkable. No evidence of radiopaque foreign body. IMPRESSION: Question possibility of left 4th and 5th rib fractures; correlate with physical exam. Osseous demineralization. Degenerative changes. High-riding humeral head may be seen in the setting of chronic rotator cuff injury.
[2018-11-08 19:11] VITALS: BP 137/84; PULSE 59; TEMP 98; O2SAT 99
--- NOTE | 2018-11-09 10:38 | CARD ---
APPROVED REPORT Date of service: 11/08/2018 EKG Measurement Heart [id number] <Conclusion> Sinus bradycardia with 1st degree AV block Nonspecific intraventricular conduction delay Nonspecific T wave abnormality Abnormal ECG
== END 2018-11-08 18:30 | disposition home or self-care (01) ==
LOC: ED 15:35
DX: S46.002A Unspecified injury of muscle(s) and tendon(s) of the rotator cuff of left shoulder, initial encounter (principal); X58.XXXA Exposure to other specified factors, initial encounter; I12.9 Hypertensive chronic kidney disease with stage 1 through stage 4 chronic kidney disease, or unspecified chronic kidney disease; E11.22 Type 2 diabetes mellitus with diabetic chronic kidney disease; N18.9 Chronic kidney disease, unspecified; Z87.891 Personal history of nicotine dependence

== ENCOUNTER 2018-11-24 08:42 | Outpatient (CLI) | payer MEDICARE | END 2018-11-24 08:43 | disposition home or self-care (01) | LOC: RAD 08:42 ==

== ENCOUNTER 2019-02-04 15:03 | Outpatient (CLI) | payer MEDICARE | END 2019-02-04 15:04 | disposition home or self-care (01) | LOC: RAD 15:03 ==

== ENCOUNTER 2019-02-12 12:22 | Outpatient (CLI) | payer MEDICARE | END 2019-02-12 12:23 | disposition home or self-care (01) | LOC: RAD 12:22 | DX: L97.512 Non-pressure chronic ulcer of other part of right foot with fat layer exposed (principal) ==

== ENCOUNTER 2019-04-03 12:32 | Emergency (ER) | payer MEDICARE ==
[2019-04-03 12:32] VITALS: BMI 28.7
[2019-04-03 12:51] VITALS: BP 155/82; PULSE 81; RESP 18; TEMP 98.5; O2SAT 100
--- NOTE | 2019-04-03 13:26 | ED PDOC ---
Arrival/HPI - General Chief Complaint: High Blood Pressure Time Seen by Provider: 04/03/19 12:47 Historian: Patient - History of Present Illness Narrative History of Present Illness (Text): 04/03/19 13:23 74 yo male h/o HTN, DM, Anxiety, COPD, CKD, Hypothyroidism, presents to the ED c/o high blood pressure. He woke up at 7am and then tried to fall back asleep. He started feeling "funny" and he couldn't go back to sleep. He took his blood pressure at home and found it to be 203/107. He took his morning dose of Norvasc 10mg. He got anxiety so he came to the ED. No shortness of breathe or chest pain. Denies lightheadedness or dizziness. No weakness or numbness. No trouble speaking or new vision changes. No headache. He just had blood work drawn yesterday with Dr. Rasmussen. By the time he got to the ED he no longer felt anxiety nor any other symptom. PMD: Dr. Rasmussen. 04/03/19 13:25 Past Medical History - Provider Review Nursing Documentation Reviewed: Yes - Infectious Disease Hx of Infectious Diseases: None - Tetanus Immunization Tetanus Immunization: Unknown - Cardiac Hx Hypertension: Yes Hx Pacemaker: No - Pulmonary Hx Respiratory Disorders: Yes Hx Chronic Obstructive Pulmonary Disease (COPD): Yes - Neurological Hx Paralysis: No - HEENT Hx HEENT Disorder: No Hx Blind: No - Renal Hx Renal Disorder: Yes Hx Renal Failure: Yes - Endocrine/Metabolic Hx Endocrine Disorders: Yes Hx Diabetes Mellitus Type 2: Yes (Control without med) Hx Hypothyroidism: Yes - Hematological/Oncological Hx Blood Transfusions: No Hx Blood Transfusion Reaction: No - Integumentary Hx Dermatological Disorder: No - Musculoskeletal/Rheumatological Hx Musculoskeletal Disorders: No - Gastrointestinal Hx Gastrointestinal Disorders: Yes Hx Diverticulitis: Yes (and diverticulosis) Hx Gastroesophageal Reflux: Yes - Genitourinary/Gynecological Hx Genitourinary Disorders: No - Psychiatric Hx Emotional Abuse: No Hx Physical Abuse: No Hx Substance Use: No - Surgical History Other/Comment: R wrist sx. Hernia repair. Liposuction - Anesthesia Hx Anesthesia: Yes Hx Anesthesia Reactions: No Hx Malignant Hyperthermia: No - Suicidal Assessment Feels Threatened In Home Enviroment: No Family/Social History - Physician Review Nursing Documentation Reviewed: Yes Family/Social History: No Known Family HX Smoking Status: Former Smoker Hx Alcohol Use: No Hx Substance Use: No Hx Substance Use Treatment: No Allergies/Home Meds Allergies/Adverse Reactions: Allergies No Known Allergies Allergy (Verified 04/03/19 12:51) Home Medications: Home Meds Medication Instructions Recorded Confirmed Allopurinol [Zyloprim] 100 mg PO DAILY 06/13/17 04/03/19 Aspirin [Adult Low Dose Aspirin EC] 81 mg PO DAILY 06/13/17 04/03/19 Doxazosin [Cardura] 2 mg PO HS 06/13/17 04/03/19 Esomeprazole Magnesium [Nexium] 40 mg PO DAILY 06/13/17 04/03/19 Levothyroxine [Synthroid] 88 mcg PO DAILY 06/13/17 04/03/19 Olmyp-9-Iybs Ethyl Esters [OMEGA 3] 1 tab PO DAILY 06/13/17 04/03/19 amLODIPine [Norvasc] 10 mg PO DAILY 06/13/17 04/03/19 Cholecalciferol [Vitamin D 1000 IU] 2,000 unit PO DAILY 12/29/17 04/03/19 Fluticasone Furoate [Arnuity 100 mcg IH DAILY 12/29/17 04/03/19 Ellipta] Paricalcitol [Zemplar] 2 mcg PO DAILY 12/29/17 04/03/19 Sodium Bicarbonate Tab 650 mg PO BID 05/14/18 04/03/19 Umeclidinium Brm/Vilanterol Tr 1 puff IH DAILY 06/25/18 04/03/19 [Anoro Ellipta 62.5-25 Mcg INH] Furosemide [Lasix] 40 mg PO DAILY 04/03/19 04/03/19 Review of Systems - Review of Systems Constitutional: Normal Eyes: Normal ENT: Normal Respiratory: Normal Cardiovascular: Normal Gastrointestinal: Normal Genitourinary Male: Normal Musculoskeletal: Normal Skin: Normal Neurological: Normal Endocrine: Normal Hemo/Lymphatic: Normal Psychiatric: Normal, Anxiety Physical Exam Vital Signs Reviewed: Yes Vital Signs Temp Pulse Resp BP Pulse Ox 04/03/19 12:48 98.5 F 81 18 155/82 H 100 Temperature: Afebrile Blood Pressure: Hypertensive Pulse: Regular Respiratory Rate: Normal Appearance: Positive for: Well-Appearing, Non-Toxic, Comfortable Pain Distress: None Mental Status: Positive for: Alert and Oriented X 3 - Systems Exam Head: Present: Atraumatic, Normocephalic Pupils: Present: PERRL Extroacular Muscles: Present: EOMI Conjunctiva: Present: Normal Mouth: Present: Moist Mucous Membranes Neck: Present: Normal Range of Motion Respiratory/Chest: Present: Clear to Auscultation, Good Air Exchange. No: Respiratory Distress, Accessory Muscle Use Cardiovascular: Present: Regular Rate and Rhythm, Normal S1, S2. No: Murmurs Abdomen: No: Tenderness, Distention, Peritoneal Signs Back: Present: Normal Inspection Upper Extremity: Present: Normal Inspection. No: Cyanosis, Edema Lower Extremity: Present: Normal Inspection. No: Edema Neurological: Present: GCS=15, CN II-XII Intact, Speech Normal Skin: Present: Warm, Dry, Normal Color. No: Rashes Psychiatric: Present: Alert, Oriented x 3, Normal Insight, Normal Concentration Medical Decision Making ED Course and Treatment: 04/03/19 13:26 74 yo male with high blood pressure. Anxiety may have been before causing blood pressure elevation or after noting he had high blood pressure. EKG was done by EMT but not clinically indicated in this case. I placed the order to log the EKG. No labs indicated. Blood pressure improved to 155/82 in ED. EKG: NSR at 76bpm with no ST elevations, 1st degree AV block, no ST changes compared to 11/08/18 Patient is comfortable with no complaints at this time. Call placed for Dr. Onel Rasmussen and pending call back. 04/03/19 13:[address] Onel Rasmussen who will see him on Friday. He will at this time continue his blood pressure regiment and f/u with his PMD on Friday. He was given education by me on stroke like symptoms, and any other symptoms that could arise by elevated pressure. He is aware to return if he has chest pain or any of the other stroke like symptoms i discussed with him. He will go home with his family and agrees with the follow up plan. Disposition/Present on Arrival - Present on Arrival Any Indicators Present on Arrival: No History of DVT/PE: No History of Uncontrolled Diabetes: No Urinary Catheter: No History of Decub. Ulcer: No History Surgical Site Infection Following: None - Disposition Have Diagnosis and Disposition been Completed?: Yes Diagnosis: Hypertension Disposition: HOME/ ROUTINE Disposition Time: 13:29 Patient Plan: Discharge Condition: IMPROVED Discharge Instructions (ExitCare): High Blood Pressure in Adults Additional Instructions: ADELINA ERNANDEZ, thank you for letting us take care of you today. Your provider was Santos Swann DO and you were treated for High Blood Pressure. The emergency medical care you received today was directed at your acute symptoms. If you were prescribed any medication, please fill it and take as directed. It may take several days for your symptoms to resolve. Return to the Emergency Department if your symptoms worsen, do not improve, or if you have any other problems. Please contact your doctor or call one of the physicians/clinics you have been referred to that are listed on the Patient Visit Information form that is included in your discharge packet. Bring any paperwork you were given at discharge with you along with any medications you are taking to your follow up visit. Our treatment cannot replace ongoing medical care by a primary care provider outside of the emergency department. Thank you for allowing the [facility] team to be part of your care today. If you had an X-Ray or CT scan: A Radiologist will review the ED reading if any change in treatment is needed we will contact you. If you had a blood, urine, or wound culture: It will take several days for the results, if any change in treatment is needed we will contact you. If you had an STI test: It will take 48 hours for the results. Please call after 1 week if you have not heard back. Referrals: Joan Rasmussen MD [Medical Doctor] - Follow up with primary Forms: [employer] (Turkmen)
--- NOTE | 2019-04-03 20:44 | CARD ---
APPROVED REPORT Date of service: 04/03/2019 EKG Measurement Heart [id number] <Conclusion> Sinus rhythm with 1st degree AV block Nonspecific intraventricular conduction delay Nonspecific T wave abnormality Prolonged QT Abnormal ECG
== END 2019-04-03 13:45 | disposition home or self-care (01) ==
LOC: ED 12:32
DX: I12.9 Hypertensive chronic kidney disease with stage 1 through stage 4 chronic kidney disease, or unspecified chronic kidney disease (principal); N18.9 Chronic kidney disease, unspecified; E11.9 Type 2 diabetes mellitus without complications; E03.9 Hypothyroidism, unspecified; J44.9 Chronic obstructive pulmonary disease, unspecified; Z87.891 Personal history of nicotine dependence